=== PATIENT | male | born 1975 ===

== ENCOUNTER 2018-09-02 02:53 | Inpatient (IN) | payer MEDICAID, OTHER ==
[2018-09-02] MEDS ORDERED: Morphine 4 mg/ml ISec IVP STA (03:05)
[2018-09-02] MEDS ORDERED: Sodium Chloride 0.9% 1,000 ML IV STA (03:05)
--- NOTE | 2018-09-02 03:15 | ED PDOC ---
Arrival/HPI - General Chief Complaint: Abdominal Pain Time Seen by Provider: 09/02/18 02:57 Historian: Patient - History of Present Illness Narrative History of Present Illness (Text): 09/02/18 03:12 43 year old male, with no significant past medical history, presents to the emergency department with abdominal pain, for 1 day. Patient informs pain coming from epigastric abdominal region. Patient also informs of episodes of v omiting associated with pain. Patient denies any diarrhea, fevers, chills, headache, dizziness, chest pain, shortness of breath, cough, back pain, neck pain, urinary/bowel changes, or any other complaint. Time/Duration: 24 hours Symptom Onset: Gradual Symptom Course: Unchanged Past Medical History - Provider Review Nursing Documentation Reviewed: Yes - Gastrointestinal Hx Liver Failure: Yes (Liver cirrhosis) - Psychiatric Hx Substance Use: No - Surgical History Hx Appendectomy: Yes - Anesthesia Hx Anesthesia: Yes Family/Social History - Physician Review Nursing Documentation Reviewed: Yes Family/Social History: No Known Family HX Smoking Status: Unknown If Ever Smoked Hx Alcohol Use: No Hx Substance Use: No Allergies/Home Meds Allergies/Adverse Reactions: Allergies No Known Allergies Allergy (Verified 09/02/18 02:59) Review of Systems - Physician Review All systems were reviewed & negative as marked: Yes - Review of Systems Constitutional: absent: Fevers, Night Sweats Respiratory: absent: SOB, Cough Cardiovascular: absent: Chest Pain Gastrointestinal: Abdominal Pain, Vomiting. absent: Diarrhea Musculoskeletal: absent: Back Pain, Neck Pain Neurological: absent: Headache, Dizziness Physical Exam Vital Signs Reviewed: Yes Vital Signs Temp Pulse Resp BP Pulse Ox 09/02/18 03:02 98.3 F 88 18 128/73 97 Temperature: Afebrile Blood Pressure: Normal Pulse: Regular Respiratory Rate: Normal Appearance: Positive for: Well-Appearing, Non-Toxic, Comfortable Pain Distress: None Mental Status: Positive for: Alert and Oriented X 3 - Systems Exam Head: Present: Atraumatic, Normocephalic Pupils: Present: PERRL Extroacular Muscles: Present: EOMI Conjunctiva: Present: Normal Mouth: Present: Moist Mucous Membranes Neck: Present: Normal Range of Motion Respiratory/Chest: Present: Clear to Auscultation, Good Air Exchange. No: Respiratory Distress, Accessory Muscle Use Cardiovascular: Present: Regular Rate and Rhythm, Normal S1, S2. No: Murmurs Abdomen: Present: Tenderness Back: Present: Normal Inspection Upper Extremity: Present: Normal Inspection. No: Cyanosis, Edema Lower Extremity: Present: Normal Inspection. No: Edema Neurological: Present: Speech Normal Skin: Present: Warm, Dry, Normal Color. No: Rashes Psychiatric: Present: Alert, Oriented x 3, Normal Insight, Normal Concentration Medical Decision Making ED Course and Treatment: 09/02/18 03:16 Impression: 43 year old male presents with epigastric pain. Plan: -- EKG -- Labs -- Morphine -- Pepcid -- Zofran -- Urinalysis -- Reassess and disposition Progress Notes: 09/02/18 05:53 CT SCAN OF THE ABDOMEN AND PELVIS WITH CONTRAST. CLINICAL HISTORY: Abdominal pain. TECHNIQUE: Multiple axial and coronal CT images were obtained through the abdomen and pelvis after administration of intravenous contrast material. COMMENTS: Distended stomach. Distended proximal small bowel. Transition zone and right lower quadrant. The liver is irregular without mass or defect. There is no intra or extrahepatic biliary ductal dilatation. The spleen is normal. The gallbladder is distended with mild diffuse thickening and enhancement of its wall. Nonobstructing gallstones are noted The pancreas is of normal contour and attenuation characteristics. There is no evidence of adrenal mass. Right renal nonobstructing stones the largest measuring 5 mm. Bilateral simple renal cysts are noted. Both kidneys demonstrate prompt and equal nephrograms. The kidneys are normal in size, shape and configuration. There is no evidence of renal or ureteral mass. No ureteral calculi are identified. There is no hydroureter or hydronephrosis. Changes of portal hypertension with prominent perisplenic varices. Prior appendectomy There is no evidence of abdominal ascites or lymphadenopathy. Prior appendectomy. There is no evidence of intrinsic or extrinsic bladder mass. There is no pelvic ascites or lymphadenopathy. Images of the lung bases show no evidence of pleural or parenchymal mass. There are no pleural effusions. The bony structures are free of lytic or blastic lesions. IMPRESSION: Parenchymal liver disease. Chronic. Portal hypertension. Cholelithiasis. Diffuse thickening and enhancement of the wall of the gallbladder, probably reactive to chronic parenchymal liver disease and portal hypertension. C orrelation with focal tenderness in the right upper quadrant and/or sonographic evaluation would be helpful to exclude acute inflammatory pathology of the gallbladder. Partial small bowel obstruction. A transition zone in the right lower quadrant. No bowel perforation or pneumatosis intestinalis. No mass lesion is noted. Nonobstructing right nephrolithiasis. - EKG Interpretation EKG Interpretation (Text): 09/02/18 03:51 nsr rate 89 nssts changes - Medication Orders Current Medication Orders: Famotidine (Pepcid) 20 mg IVP STAT STA Stop: 09/02/18 03:06 Sodium Chloride (Sodium Chloride 0.9%) 1,000 mls @ 100 mls/hr IV .Q10H STA Stop: 09/02/18 13:04 Morphine Sulfate (Morphine) 4 mg IVP STAT STA Stop: 09/02/18 03:06 Ondansetron HCl (Zofran Inj) 4 mg IVP STAT STA Stop: 09/02/18 03:06 - Scribe Statement The provider has reviewed the documentation as recorded by the Scribe Canelo Navarro Provider Scribe Attestation: All medical record entries made by the Scribe were at my direction and personally dictated by me. I have reviewed the chart and agree that the record accurately reflects my personal performance of the history, physical exam, medical decision making, and the department course for this patient. I have also personally directed, reviewed, and agree with the discharge instructions and disposition. Disposition/Present on Arrival - Present on Arrival Any Indicators Present on Arrival: No History of DVT/PE: No History of Uncontrolled Diabetes: No Urinary Catheter: No History of Decub. Ulcer: No History Surgical Site Infection Following: None - Disposition Have Diagnosis and Disposition been Completed?: Yes Diagnosis: Bowel obstruction Disposition: HOSPITALIZED Disposition Time: 07:00 Condition: GOOD
[2018-09-02 03:46] LABS: INR 1.62; PARTIAL THROMBOPLASTIN TIME 40.3 Seconds (25.1-36.5); PROTHROMBIN TIME 18.7 SECONDS (9.4-12.5)
[2018-09-02 03:58] LABS: BASO # 0.01 K/mm3 (0.0-2.0); BASO % 0.3 % (0.0-3.0); EOS # 0.2 (0.0-0.7); EOS % 6.1 % (1.5-5.0); GRAN # 1.67 (1.4-6.5); HEMOGLOBIN 11.4 g/dL (14.0-18.0); LYMPH % 31.9 % (22.0-35.0); MEAN CELL VOLUME 95.1 fl (80.0-105.0); MEAN CORPUSCULAR HEMOGLOBIN 32.6 pg (25.0-35.0); MEAN CORPUSCULAR HGB CONC 34.2 g/dl (31.0-37.0); MEAN PLATELET VOLUME 11.8 fl (7.0-11.0); MONO # 0.2 (0.1-0.6); MONO % 7.7 % (1.0-6.0); RBC 3.5 10^6/uL (3.5-6.1); RED CELL DISTRIBUTION WIDTH 15.6 % (11.5-14.5); WHITE BLOOD COUNT 3.1 10^3/ul (4.5-11.0)
[2018-09-02 04:03] LABS: ALB/GLOB RATIO 0.8 (1.1-1.8); ALBUMIN 2.8 g/dL (3.0-4.8); ALT/SGPT 31 U/L (7-56); AMYLASE 96 U/L (35-125); AST/SGOT 43 U/L (17-59); BLOOD UREA NITROGEN 9 mg/dL (7-21); CALCIUM 8.5 mg/dL (8.4-10.5); GFR NON-AFRICAN AMERICAN > 60; LIPASE 146 U/L (23-300)
[2018-09-02 04:14] LABS: TROPONIN I < 0.01 ng/mL
[2018-09-02] MEDS ORDERED: Iohexol 350 MG/100 ML VIAL ONE (04:23)
--- NOTE | 2018-09-02 08:18 | CARD ---
APPROVED REPORT Date of service: 09/02/2018 EKG Measurement Heart [id number] <Conclusion> Normal sinus rhythm NSSTW changes Prolonged QT
[2018-09-02 09:00] LABS: URINE BILIRUBIN NEGATIVE (NEGATIVE); URINE BLOOD SMALL (NEGATIVE); URINE GLUCOSE (UA) NEGATIVE (NEGATIVE); URINE LEUKOCYTE ESTERASE NEGATIVE Leu/uL (NEGATIVE); URINE PROTEIN NEGATIVE mg/dL (<30 mg/dL)
--- NOTE | 2018-09-02 09:05 | CP.PCM.CON ---
History of Present Illness - History of Present Illness History of Present Illness: Deric Abdul, PGY-1, Surgery Consult Note for Dr. Barragan 43 year old male with past medical history of cirrhosis presents with burning, constant right sided abdominal pain for 1 day. Patient reports eating green vegetables when the pain started 1 day ago and had 8 episodes of nonbilious, nonbloody vomitus since the pain started. He reports the pain radiates to the lower back. Patient has had chronic yellow diarrhea since he was diagnosed with cirrhosis 5 years ago. Patient has 4-6 bowel movements a day and has been passing gas even today. Patient has had a similar episode 3 months ago when he ate green vegetables and was told not to eat green vegetables and given a modified diet. He cannot remember what the diagnosis was but reported that it was related to his cirrhosis. Patient has had endoscopy and colonoscopy 1 year a go which was unremarkable. Upon arrival to emergency department, CT scan shows abdominal pain secondary to cholecystitis vs. small bowel obstruction. Patient denies any other symptoms such as headache, dizziness, chest pain, heart palpitations, shortness of breath, dysuria, and hematuria. 12-point ROS was negative except for what was mentioned above. PMH: cirrhosis PSH: appendectomy FMHx: denies SHx: reported drinking but stopped 5 years ago. He used to drink 8-10 drinks daily. He denies smoking and recreational drug history use. Allergies: NKDA Medications: lactulose PMD: none Casket Liner: none Review of Systems - Constitutional Constitutional: absent: Chills, Fever - EENT Eyes: absent: Blurred Vision Ears: absent: Decreased Hearing Nose/Mouth/Throat: absent: Dysphagia - Cardiovascular Cardiovascular: absent: Chest Pain, Dyspnea, Dyspnea on Exertion - Respiratory Respiratory: absent: Cough, Dyspnea, Dyspnea on Exertion - Gastrointestinal Gastrointestinal: Abdominal Pain (right sided), Diarrhea (yellow), Nausea, Vomiting. absent: Constipation - Genitourinary Genitourinary: absent: Dysuria, Hematuria - Musculoskeletal Musculoskeletal: absent: Arthralgias, Muscle Weakness, Stiffness - Neurological Neurological: absent: Confusion, Numbness, Headaches, Tingling, Vertigo Past Patient History - Past Social History Smoking Status: Unknown If Ever Smoked - GASTROINTESTINAL Hx Liver Failure: Yes (Liver cirrhosis) - PSYCHIATRIC Hx Substance Use: No - SURGICAL HISTORY Hx Appendectomy: Yes - ANESTHESIA Hx Anesthesia: Yes Meds Allergies/Adverse Reactions: Allergies Allergy/AdvReac Type Severity Reaction Status Date / Time No Known Allergies Allergy Verified 09/02/18 02:59 - Medications Medications: Current Medications Sodium Chloride (Sodium Chloride 0.9%) 1,000 mls @ 100 mls/hr IV .Q10H STA Stop: 09/02/18 13:04 Last Admin: 09/02/18 03:31 Dose: 100 mls/hr Physical Exam - Constitutional Appears: Well, Non-toxic - Head Exam Head Exam: ATRAUMATIC, NORMAL INSPECTION, NORMOCEPHALIC - Eye Exam Eye Exam: EOMI Pupil Exam: PERRL - ENT Exam ENT Exam: Mucous Membranes Moist - Respiratory Exam Respiratory Exam: Clear to Auscultation Bilateral, NORMAL BREATHING PATTERN - Cardiovascular Exam Cardiovascular Exam: REGULAR RHYTHM - GI/Abdominal Exam GI & Abdominal Exam: Distended (mild), Normal Bowel Sounds, Soft, Tenderness Additional comments: negative Copeland's sign - Extremities Exam Extremities exam: Positive for: full ROM, normal inspection - Neurological Exam Neurological exam: Alert, CN II-XII Intact, Normal Gait, Oriented x3 Results - Vital Signs Recent Vital Signs: Last Vital Signs Temp 98.0 F 09/02/18 08:38 Pulse 79 09/02/18 08:38 Resp 18 09/02/18 08:38 BP 119/73 09/02/18 08:18 Pulse Ox 98 09/02/18 08:38 - Labs Result Diagrams: 09/02/18 03:27 09/02/18 03:27 Labs: Laboratory Results - last 24 hr 09/02/18 09/02/18 09/02/18 03:27 03:27 03:27 WBC 3.1 L RBC 3.50 Hgb 11.4 L Hct 33.3 L MCV 95.1 MCH 32.6 MCHC 34.2 RDW 15.6 H Plt Count 59 L MPV 11.8 H Gran % 54.0 Lymph % (Auto) 31.9 [place] % (Auto) 7.7 H Eos % (Auto) 6.1 H Baso % (Auto) 0.3 Gran # 1.67 Lymph # (Auto) 1.0 L [place] # (Auto) 0.2 Eos # (Auto) 0.2 Baso # (Auto) 0.01 PT 18.7 H INR 1.62 APTT 40.3 H Sodium 141 Potassium 3.7 Chloride 110 H Carbon Dioxide 25 Anion Gap 9 L BUN 9 Creatinine 0.5 L Est GFR ( Amer) > 60 Est GFR (Non-Af Amer) > 60 Random Glucose 116 H Calcium 8.5 Total Bilirubin 4.0 H AST 43 ALT 31 Alkaline Phosphatase 229 H Lactate Dehydrogenase 484 Total Creatine Kinase 119 Troponin I < 0.01 Total Protein 6.3 Albumin 2.8 L Globulin 3.5 Albumin/Globulin Ratio 0.8 L Amylase 96 Lipase 146 Assessment & Plan - Assessment and Plan (Free Text) Assessment: 43 year old male with past medical history of cirrhosis presents with right sided abdominal pain radiating to the back with 8 episodes of vomiting for [address] scan showed diffuse thickening and enhancement of gallbladder wall secondary to parenchmyal liver disease, portal hypoertension, and partial SBO in right lower quadrant. Plan: -Patient is clinically not obstructed. -Abnormal lab findings likely due to alcoholic cirrhosis. -MELD score is 17. Child HOOPER score is B. -Follow up right upper quadrant ultrasound and GI consult. Will discuss case with Dr. Barragan. - Date & Time Date: 09/02/18 Time: 09:09
[2018-09-02 09:10] LABS: URINE APPEARANCE CLEAR (CLEAR); URINE COLOR YELLOW (YELLOW)
[2018-09-02 09:45] LABS: URINE BACTERIA SMALL (NEG); URINE CALCIUM OXALATE CRYSTALS TRACE /hpf; URINE RBC 0 - 2 /hpf (0-2); URINE WBC 0 - 2 /hpf (0-6)
--- NOTE | 2018-09-02 10:09 | CT ---
Date of service: 09/02/2018 PROCEDURE: CT Abdomen and Pelvis with and without intravenous contrast HISTORY: abd pain COMPARISON: None. TECHNIQUE: Axial images of the abdomen were obtained in the pre contrast, portal venous and delayed phases of enhancement. Coronal and sagittal reformats were generated. Contrast dose: Radiation dose: Total exam DLP = 987.36 mGy-cm. This CT exam was performed using one or more of the following dose reduction techniques: Automated exposure control, adjustment of the mA and/or kV according to patient size, and/or use of iterative reconstruction technique. FINDINGS: LOWER THORAX: Unremarkable. LIVER: Cirrhosis with upper abdominal varices consistent with portal hypertension. GALLBLADDER AND BILE DUCTS: Gallstones. PANCREAS: Unremarkable. No gross lesion or ductal dilatation. SPLEEN: Splenomegaly consistent with portal hypertension. ADRENALS: Unremarkable. No mass. KIDNEYS AND URETERS: Bilateral renal cysts and bilateral renal calculi, nonobstructive. No gross mass. VASCULATURE: Unremarkable. No aortic aneurysm. No aortic atherosclerotic calcification or mural plaque present. BOWEL: Distended loops of small bowel probable partial small bowel obstruction versus ileus. Appendectomy. APPENDIX: Normal appendix. PERITONEUM: Unremarkable. No free fluid. No free air. LYMPH NODES: Unremarkable. No enlarged lymph nodes. BLADDER: Unremarkable. REPRODUCTIVE: Unremarkable. BONES: No acute fracture. OTHER FINDINGS: None. IMPRESSION: Cirrhosis with upper abdominal varices consistent with portal hypertension. Splenomegaly. Bilateral renal cysts and nephrolithiasis. Distended loops of small bowel probable partial small bowel obstruction versus ileus. Appendectomy.
[2018-09-02 10:49] VITALS: BMI 33.3
--- NOTE | 2018-09-02 11:38 | US ---
Date of service: 09/02/2018 HISTORY: epigastric pain, elevated bili, liver cirrhosis COMPARISON: None. TECHNIQUE: Sonographic evaluation of the abdomen. FINDINGS: LIVER: Measures 15.0 cm. Diffusely increased echogenicity of the liver parenchyma. Consistent with fatty infiltration. 10 mm simple cyst in right lobe of liver. No other mass. No biliary ductal dilatation. Smooth contour. Note is made of reversal of normal direction of flow in the main portal vein. Hepatofugal portal venous flow noted. GALLBLADDER: Cholelithiasis. Mural thickening up to 5 mm. No pericholecystic fluid. Negative sonographic Copeland sign. Findings equivocal for cholecystitis. COMMON BILE DUCT: Measures 4 mm. No stones. No dilatation. PANCREAS: Unremarkable as visualized. No mass. No ductal dilatation. RIGHT KIDNEY: Measures 12.5cm. Normal cortical thickness and echogenicity. Parapelvic renal cyst, 2.7 cm diameter. No other mass. No calculus or hydronephrosis. LEFT KIDNEY: Measures 12.7cm. Normal cortical thickness and echogenicity. Mid renal simple cortical cyst, 1.9 x 2.0 x 2.5 cm. No calculus or hydronephrosis. SPLEEN: Splenomegaly. The spleen measures 16.8 cm. Dilated venous channels in the region of the splenic hilum, possibly varices. AORTA: No aneurysmal dilatation. IVC: Unremarkable. OTHER FINDINGS: None. IMPRESSION: Cholelithiasis with gallbladder wall thickening but no other signs of cholecystitis. Equivocal findings. Fatty infiltration of the liver. Portal hypertension as demonstrated by a reversal of the normal direction of flow in the main portal vein. Possible retroperitoneal varices adjacent to splenic hilar region. Right parapelvic renal cyst and left renal cortical cyst. Splenomegaly
[2018-09-02] MEDS ORDERED: Morphine 2 mg/ml ISec IVP PRN (13:09)
--- NOTE | 2018-09-02 13:17 | CP.PCM.HP ---
<Anamika Moreno - Last Filed: 09/02/18 15:55> History of Present Illness - History of Present Illness History of Present Illness: CC: Abdominal pain, Nausea and vomiting HPI: 43 yr old Male PMH of cirrhosis presents with Abdominal pain which began as epigastric and migrated to his RLQ associated with nausea and vomiting x 8 for 1 day. Patient indicates that he has also had diarrhea overnight with one normal BM this AM. He states that the pain is constant in nature and began as a burning but is now more dull. He had an endoscopy and colonoscopy 1 yr ago which he states were normal. He was previously a heavy drinker until 5 years ago when he was diagnosed with liver cirrhosis and has quit drinking ETOH since. He denies any current BARON, CP, SOB, dizziness, confusion, vision changes or tremors. PMH: Liver Cirrhosis with associated varices and portal HTN PSH: Appendectomy All: KNDA Social: former alcoholic, denies smoking and illicit drugs PMD: unknown Medications: Lactulose Present on Admission - Present on Admission Any Indicators Present on Admission: No Review of Systems - Review of Systems All systems: reviewed and no additional remarkable complaints except (as per HPI) Past Patient History - Past Social History Smoking Status: Unknown If Ever Smoked - GASTROINTESTINAL Hx Liver Failure: Yes (Liver cirrhosis) - PSYCHIATRIC Hx Substance Use: No - SURGICAL HISTORY Hx Appendectomy: Yes - ANESTHESIA Hx Anesthesia: Yes Meds Allergies/Adverse Reactions: Allergies Allergy/AdvReac Type Severity Reaction Status Date / Time No Known Allergies Allergy Verified 09/02/18 02:59 Physical Exam - Constitutional Appears: Well, Non-toxic, No Acute Distress - Head Exam Head Exam: ATRAUMATIC, NORMOCEPHALIC - Eye Exam Eye Exam: EOMI, Scleral icterus (mild) Pupil Exam: PERRL - ENT Exam ENT Exam: Mucous Membranes Moist Additional comments: no sublingual jaundice - Respiratory Exam Respiratory Exam: NORMAL BREATHING PATTERN - Cardiovascular Exam Cardiovascular Exam: REGULAR RHYTHM - GI/Abdominal Exam GI & Abdominal Exam: Distended, Guarding (RLQ), Soft, Tenderness (RLQ and epigastric area). absent: Rebound, Rigid - Extremities Exam Extremities exam: Positive for: normal capillary refill, pedal pulses present. Negative for: calf tenderness, pedal edema - Back Exam Back exam: NORMAL INSPECTION. absent: CVA tenderness (L), CVA tenderness (R) - Neurological Exam Neurological exam: Alert, CN II-XII Intact, Oriented x3 - Psychiatric Exam Psychiatric exam: Normal Affect, Normal Mood - Skin Skin Exam: Dry, Normal Color, Warm Results - Vital Signs Recent Vital Signs: Last Vital Signs Temp 98.0 F 09/02/18 08:38 Pulse 79 09/02/18 08:38 Resp 18 09/02/18 08:38 BP 119/73 09/02/18 08:18 Pulse Ox 98 09/02/18 08:38 - Labs Result Diagrams: 09/02/18 03:27 09/02/18 03:27 Labs: Laboratory Results - last 24 hr 09/02/18 09/02/18 09/02/18 03:27 03:27 03:27 WBC 3.1 L RBC 3.50 Hgb 11.4 L Hct 33.3 L MCV 95.1 MCH 32.6 MCHC 34.2 RDW 15.6 H Plt Count 59 L MPV 11.8 H Gran % 54.0 Lymph % (Auto) 31.9 [place] % (Auto) 7.7 H Eos % (Auto) 6.1 H Baso % (Auto) 0.3 Gran # 1.67 Lymph # (Auto) 1.0 L [place] # (Auto) 0.2 Eos # (Auto) 0.2 Baso # (Auto) 0.01 PT 18.7 H INR 1.62 APTT 40.3 H Sodium 141 Potassium 3.7 Chloride 110 H Carbon Dioxide 25 Anion Gap 9 L BUN 9 Creatinine 0.5 L Est GFR ( Amer) > 60 Est GFR (Non-Af Amer) > 60 Random Glucose 116 H Calcium 8.5 Total Bilirubin 4.0 H AST 43 ALT 31 Alkaline Phosphatase 229 H Ammonia Lactate Dehydrogenase 484 Total Creatine Kinase 119 Troponin I < 0.01 Total Protein 6.3 Albumin 2.8 L Globulin 3.5 Albumin/Globulin Ratio 0.8 L Amylase 96 Lipase 146 Urine Color Urine Appearance Urine pH Ur Specific [place] Urine Protein Urine Glucose (UA) Urine Ketones Urine Blood Urine Nitrate Urine Bilirubin Urine Urobilinogen Ur Leukocyte Esterase Urine RBC Urine WBC Calcium Oxalate Crystal Urine Bacteria 09/02/18 09/02/18 08:50 10:30 WBC RBC Hgb Hct MCV MCH MCHC RDW Plt Count MPV Gran % Lymph % (Auto) [place] % (Auto) Eos % (Auto) Baso % (Auto) Gran # Lymph # (Auto) [place] # (Auto) Eos # (Auto) Baso # (Auto) PT INR APTT Sodium Potassium Chloride Carbon Dioxide Anion Gap BUN Creatinine Est GFR ( Amer) Est GFR (Non-Af Amer) Random Glucose Calcium Total Bilirubin AST ALT Alkaline Phosphatase Ammonia 48 H Lactate Dehydrogenase Total Creatine Kinase Troponin I Total Protein Albumin Globulin Albumin/Globulin Ratio Amylase Lipase Urine Color Yellow Urine Appearance Clear Urine pH 7.0 Ur Specific [place] 1.010 Urine Protein Negative Urine Glucose (UA) Negative Urine Ketones Negative Urine Blood Small H Urine Nitrate Negative Urine Bilirubin Negative Urine Urobilinogen 1.0 H Ur Leukocyte Esterase Negative Urine RBC 0 - 2 Urine WBC 0 - 2 Calcium Oxalate Crystal Trace Urine Bacteria Small Assessment & Plan - Assessment and Plan (Free Text) Assessment: 43 yr old male with PMH Liver Cirrhosis presenting with SBO vs Ileus Plan: SBO vs Ileus on CT scan: * Patient having BM and passing flatus, likely early partial if obstructed * CLD, ADAT * IVF * Zofran * Pain control * Surgery consulted, recs appreciated * GI consulted recs appreciated * communication placed for patient to walk floors Q2H History of Cirrhosis/ Portal hypertension/ Varices: * MELD 17, João [place] Class B * will contact [facility] for possible transplant candidacy * Ammonia level ordered * will restart home lactulose * will begin propanolol for variceal bleed prophylaxis Rash: * likely tinea corporis * clotrimazole cream BID to affected area Prophylaxis: SCDs, Protonix Social: Patient follows at [facility] for his liver cirrhosis care, he indicates that he had a normal colonoscopy and endoscopy there one year ago, will obtain records and follow up Patient seen and discussed with Dr. Christy Moreno, PGY 1 - Date & Time Date: 09/02/18 Time: 07:35 <Yefri Harrison - Last Filed: 09/03/18 17:55> Results - Vital Signs Recent Vital Signs: Last Vital Signs Temp 97.9 F 09/03/18 17:09 Pulse 70 09/03/18 17:09 Resp 20 09/03/18 17:09 BP 100/64 09/03/18 17:09 Pulse Ox 100 09/03/18 17:09 - Labs Result Diagrams: 09/03/18 05:30 09/03/18 05:30 Labs: Laboratory Results - last 24 hr 09/03/18 09/03/18 09/03/18 05:30 05:30 07:16 WBC 2.9 L* RBC 3.51 Hgb 11.5 L Hct 33.6 L MCV 95.7 MCH 32.8 MCHC 34.2 RDW 15.3 H Plt Count 54 L MPV 11.9 H Gran % 51.6 Lymph % (Auto) 33.8 [place] % (Auto) 7.0 H Eos % (Auto) 7.3 H Baso % (Auto) 0.3 Gran # 1.48 Lymph # (Auto) 1.0 L [place] # (Auto) 0.2 Eos # (Auto) 0.2 Baso # (Auto) 0.01 Sodium 139 Potassium 4.0 Chloride 111 H Carbon Dioxide 25 Anion Gap 8 L BUN 6 L Creatinine 0.6 L Est GFR ( Amer) > 60 Est GFR (Non-Af Amer) > 60 POC Glucose (mg/dL) 86 Random Glucose 82 Calcium 8.2 L Phosphorus 3.9 Magnesium 1.4 L Total Bilirubin 7.5 H AST 40 ALT 29 Alkaline Phosphatase 130 H D Total Protein 5.7 L Albumin 2.6 L Globulin 3.1 Albumin/Globulin Ratio 0.9 L Attending/Attestation - Attestation I have personally seen and examined this patient.: Yes I have fully participated in the care of the patient.: Yes I have reviewed all pertinent clinical information: Yes Notes (Text): 43 yr old male with PMH Liver Cirrhosis presenting with SBO / Ileus Plan: SBO / Ileus on CT scan History of Cirrhosis/ Portal hypertension/ Varices: Rash: * likely tinea corporis
[2018-09-02] MEDS ORDERED: Pneumococcal 23-Valent Vaccine IM ONE (13:50)
[2018-09-02] MEDS ORDERED: Influenza Vaccine 60 mcg/0.5 mL SYR (4YR UP) IM ONE (13:50)
[2018-09-02 17:02] VITALS: RESP 20
[2018-09-02] MEDS: Clotrimazole 1% Cream(30 gm) TOP SCH (17:25)
[2018-09-02] MEDS: Sodium Chloride 0.9% 1,000 ML IV SCH (17:31)
[2018-09-03] MEDS: Sodium Chloride 0.9% 1,000 ML IV SCH ×2 (02:32→11:25)
[2018-09-03 06:37] LABS: BASO # 0.01 K/mm3 (0.0-2.0); BASO % 0.3 % (0.0-3.0); EOS # 0.2 (0.0-0.7); EOS % 7.3 % (1.5-5.0); GRAN # 1.48 (1.4-6.5); GRAN % 51.6 % (50.0-68.0); HEMOGLOBIN 11.5 g/dL (14.0-18.0); LYMPH % 33.8 % (22.0-35.0); MEAN CELL VOLUME 95.7 fl (80.0-105.0); MEAN CORPUSCULAR HEMOGLOBIN 32.8 pg (25.0-35.0); MEAN CORPUSCULAR HGB CONC 34.2 g/dl (31.0-37.0); MEAN PLATELET VOLUME 11.9 fl (7.0-11.0); MONO # 0.2 (0.1-0.6); RBC 3.51 10^6/uL (3.5-6.1); RED CELL DISTRIBUTION WIDTH 15.3 % (11.5-14.5)
[2018-09-03 06:44] LABS: ALB/GLOB RATIO 0.9 (1.1-1.8); ALBUMIN 2.6 g/dL (3.0-4.8); ALT/SGPT 29 U/L (7-56); AST/SGOT 40 U/L (17-59); BLOOD UREA NITROGEN 6 mg/dL (7-21); CALCIUM 8.2 mg/dL (8.4-10.5); GFR NON-AFRICAN AMERICAN > 60
[2018-09-03 06:57] LABS: WHITE BLOOD COUNT 2.9 10^3/ul (4.5-11.0)
--- NOTE | 2018-09-03 07:43 | CP.PCM.PN ---
Subjective - Date & Time of Evaluation Date of Evaluation: 09/03/18 Time of Evaluation: 07:40 - Subjective Subjective: Deric Abdul, PGY-1, Surgery Progress Note for Dr. Barragan Patient seen and examined at bedside. Patient reports no overnight events. Patient reports having normal bowel movements, but denies nausea, vomiting, abdominal pain today. He reports mild chills. 12-point ROS is unremarkable except for what is above. Objective - Vital Signs/Intake and Output Vital Signs (last 24 hours): Temp Pulse Resp BP Pulse Ox 98.2 F 78 20 123/84 99 09/02/18 17:02 09/02/18 17:26 09/02/18 17:02 09/02/18 17:26 09/02/18 17:02 - Medications Medications: Current Medications Clotrimazole (Lotrimin 1%) 1 gm TOP BID [facility] Last Admin: 09/02/18 17:25 Dose: 1 gm Sodium Chloride (Sodium Chloride 0.9%) 1,000 mls @ 130 mls/hr IV .Q7H42M [facility] Last Admin: 09/03/18 02:32 Dose: 130 mls/hr Lactulose (Enulose) 20 gm PO HS [facility] Last Admin: 09/02/18 22:16 Dose: 20 gm Ondansetron HCl (Zofran Inj) 4 mg IVP Q4H PRN PRN Reason: Nausea/Vomiting Pantoprazole Sodium (Protonix Inj) 40 mg IVP DAILY [facility] Last Admin: 09/02/18 10:37 Dose: 40 mg Propranolol HCl (Inderal) 10 mg PO TID [facility] Last Admin: 09/02/18 17:26 Dose: 10 mg - Labs Labs: 09/03/18 05:30 09/03/18 05:30 PT 18.7 SECONDS (9.4-12.5) H 09/02/18 03:27 INR 1.62 09/02/18 03:27 APTT 40.3 Seconds (25.1-36.5) H 09/02/18 03:27 - Constitutional Appears: Well, Non-toxic, No Acute Distress - Head Exam Head Exam: ATRAUMATIC, NORMAL INSPECTION, NORMOCEPHALIC - Eye Exam Eye Exam: EOMI Pupil Exam: PERRL - ENT Exam ENT Exam: Mucous Membranes Moist - Respiratory Exam Respiratory Exam: Clear to Ausculation Bilateral, NORMAL BREATHING PATTERN - Cardiovascular Exam Cardiovascular Exam: REGULAR RHYTHM, RRR - GI/Abdominal Exam GI & Abdominal Exam: Distended (mild), Soft, Normal Bowel Sounds. absent: Tenderness - Extremities Exam Extremities Exam: Full ROM - Neurological Exam Neurological Exam: Alert, Awake, CN II-XII Intact, Normal Gait, Oriented x3 - Skin Skin Exam: Dry, Intact, Normal Color Assessment and Plan - Assessment and Plan (Free Text) Assessment: 43 year old male with past medical history of cirrhosis presents with right sided abdominal pain present for 1 day after he ate green vegetables. Plan: -Advance diet as tolerated. -Patient has improved abdominal tenderness and is having bowel movements. -DVT and GI prophylaxis. -Replete electrolytes as needed. -If patient needs further surgical management, please call the surgery service. Will discuss case with Dr. Barragan
[2018-09-03] MEDS ORDERED: Magnesium Sulfate 2 gm/50 ml 2 GM/50 ML BAG IVPB ONE (09:09)
[2018-09-03] MEDS ORDERED: Lactulose 10 gm/15 ml (Rectal Use) PR SCH (10:00)
[2018-09-03] MEDS: Clotrimazole 1% Cream(30 gm) TOP SCH (10:28)
--- NOTE | 2018-09-03 10:45 | RAD ---
Date of service: 09/03/2018 HISTORY: SBO COMPARISON: CT abdomen and pelvis performed on 09/02/2018 FINDINGS: BOWEL: There are gas filled normal caliber small bowel loops and gas in the colon. No evidence of bowel dilatation or obstruction. No differential air-fluid levels. No free intraperitoneal air. BONES: Normal. OTHER FINDINGS: None. IMPRESSION: Nonspecific nonobstructive bowel gas pattern.
--- NOTE | 2018-09-03 12:48 | CP.PCM.PN ---
Subjective - Date & Time of Evaluation Date of Evaluation: 09/03/18 Time of Evaluation: 07:15 Objective - Vital Signs/Intake and Output Vital Signs (last 24 hours): Temp Pulse Resp BP Pulse Ox 98.2 F 70 20 130/83 99 09/02/18 17:02 09/03/18 11:26 09/02/18 17:02 09/03/18 11:26 09/02/18 17:02 - Medications Medications: Current Medications Clotrimazole (Lotrimin 1%) 1 gm TOP BID [facility] Last Admin: 09/03/18 10:28 Dose: 1 gm Sodium Chloride (Sodium Chloride 0.9%) 1,000 mls @ 130 mls/hr IV .Q7H42M [facility] Last Admin: 09/03/18 11:25 Dose: 130 mls/hr Lactulose (Enulose) 20 gm PO HS [facility] Last Admin: 09/02/18 22:16 Dose: 20 gm Ondansetron HCl (Zofran Inj) 4 mg IVP Q4H PRN PRN Reason: Nausea/Vomiting Pantoprazole Sodium (Protonix Ec Tab) 40 mg PO ACB [facility] Propranolol HCl (Inderal) 10 mg PO TID [facility] Last Admin: 09/03/18 11:26 Dose: 10 mg - Labs Labs: 09/03/18 05:30 09/03/18 05:30 PT 18.7 SECONDS (9.4-12.5) H 09/02/18 03:27 INR 1.62 09/02/18 03:27 APTT 40.3 Seconds (25.1-36.5) H 09/02/18 03:27 - Constitutional Appears: Well, Non-toxic, No Acute Distress - Head Exam Head Exam: ATRAUMATIC, NORMOCEPHALIC - Eye Exam Eye Exam: EOMI, Scleral icterus - ENT Exam ENT Exam: Mucous Membranes Moist - Respiratory Exam Respiratory Exam: NORMAL BREATHING PATTERN - Cardiovascular Exam Cardiovascular Exam: REGULAR RHYTHM - GI/Abdominal Exam GI & Abdominal Exam: Soft. absent: Distended, Firm, Guarding, Rigid, Tenderness, Rebound - Extremities Exam Extremities Exam: Normal Capillary Refill. absent: Calf Tenderness, Pedal Edema, Tenderness - Neurological Exam Neurological Exam: Alert, Awake, Oriented x3 - Psychiatric Exam Psychiatric exam: Normal Affect, Normal Mood - Skin Skin Exam: Dry, Intact, Normal Color, Warm Additional comments: jaundice Assessment and Plan - Assessment and Plan (Free Text) Assessment: 43 yr old male with PMH Cirrhosis (MELD 17) with resolved partial SBO found on CT scan
--- NOTE | 2018-09-03 14:20 | CP.PCM.DIS ---
Provider - Provider Date of Admission: 09/02/18 06:38 Attending physician: Jessica Mead MD Consults: Dr. Terri Barragan, Dr. Landen Palma Time Spent in preparation of Discharge (in minutes): 45 Hospital Course - Lab Results Lab Results: Most Recent Lab Values WBC 2.9 10^3/ul (4.5-11.0) L* 09/03/18 05:30 RBC 3.51 10^6/uL (3.5-6.1) 09/03/18 05:30 Hgb 11.5 g/dL (14.0-18.0) L 09/03/18 05:30 Hct 33.6 % (42.0-52.0) L 09/03/18 05:30 MCV 95.7 fl (80.0-105.0) 09/03/18 05:30 MCH 32.8 pg (25.0-35.0) 09/03/18 05:30 MCHC 34.2 g/dl (31.0-37.0) 09/03/18 05:30 RDW 15.3 % (11.5-14.5) H 09/03/18 05:30 Plt Count 54 10^3/uL (120.0-450.0) L 09/03/18 05:30 MPV 11.9 fl (7.0-11.0) H 09/03/18 05:30 Gran % 51.6 % (50.0-68.0) 09/03/18 05:30 Lymph % (Auto) 33.8 % (22.0-35.0) 09/03/18 05:30 [place] % (Auto) 7.0 % (1.0-6.0) H 09/03/18 05:30 Eos % (Auto) 7.3 % (1.5-5.0) H 09/03/18 05:30 Baso % (Auto) 0.3 % (0.0-3.0) 09/03/18 05:30 Gran # 1.48 (1.4-6.5) 09/03/18 05:30 Lymph # (Auto) 1.0 (1.2-3.4) L 09/03/18 05:30 [place] # (Auto) 0.2 (0.1-0.6) 09/03/18 05:30 Eos # (Auto) 0.2 (0.0-0.7) 09/03/18 05:30 Baso # (Auto) 0.01 K/mm3 (0.0-2.0) 09/03/18 05:30 PT 18.7 SECONDS (9.4-12.5) H 09/02/18 03:27 INR 1.62 09/02/18 03:27 APTT 40.3 Seconds (25.1-36.5) H 09/02/18 03:27 Sodium 139 mmol/L (132-148) 09/03/18 05:30 Potassium 4.0 mmol/L (3.6-5.0) 09/03/18 05:30 Chloride 111 mmol/L (98-107) H 09/03/18 05:30 Carbon Dioxide 25 mmol/L (21-33) 09/03/18 05:30 Anion Gap 8 (10-20) L 09/03/18 05:30 BUN 6 mg/dL (7-21) L 09/03/18 05:30 Creatinine 0.6 mg/dl (0.8-1.5) L 09/03/18 05:30 Est GFR ( Amer) > 60 09/03/18 05:30 Est GFR (Non-Af Amer) > 60 09/03/18 05:30 POC Glucose (mg/dL) 86 mg/dL (65-110) 09/03/18 07:16 Random Glucose 82 mg/dL (70-110) 09/03/18 05:30 Calcium 8.2 mg/dL (8.4-10.5) L 09/03/18 05:30 Phosphorus 3.9 mg/dL (2.5-4.5) 09/03/18 05:30 Magnesium 1.4 mg/dL (1.7-2.2) L 09/03/18 05:30 Total Bilirubin 7.5 mg/dL (0.2-1.3) H 09/03/18 05:30 AST 40 U/L (17-59) 09/03/18 05:30 ALT 29 U/L (7-56) 09/03/18 05:30 Alkaline Phosphatase 130 U/L (38-126) H D 09/03/18 05:30 Ammonia 48 umol/L (9-33) H 09/02/18 10:30 Lactate Dehydrogenase 484 U/L (333-699) 09/02/18 03:27 Total Creatine Kinase 119 U/L (35-230) 09/02/18 03:27 Troponin I < 0.01 ng/mL 09/02/18 03:27 Total Protein 5.7 g/dL (5.8-8.3) L 09/03/18 05:30 Albumin 2.6 g/dL (3.0-4.8) L 09/03/18 05:30 Globulin 3.1 gm/dL 09/03/18 05:30 Albumin/Globulin Ratio 0.9 (1.1-1.8) L 09/03/18 05:30 Amylase 96 U/L (35-125) 09/02/18 03:27 Lipase 146 U/L (23-300) 09/02/18 03:27 Urine Color Yellow (YELLOW) 09/02/18 08:50 Urine Appearance Clear (CLEAR) 09/02/18 08:50 Urine pH 7.0 (4.7-8.0) 09/02/18 08:50 Ur Specific [place] 1.010 (1.005-1.035) 09/02/18 08:50 Urine Protein Negative mg/dL (<30 mg/dL) 09/02/18 08:50 Urine Glucose (UA) Negative mg/dL (NEGATIVE) 09/02/18 08:50 Urine Ketones Negative mg/dL (NEGATIVE) 09/02/18 08:50 Urine Blood Small (NEGATIVE) H 09/02/18 08:50 Urine Nitrate Negative (NEGATIVE) 09/02/18 08:50 Urine Bilirubin Negative (NEGATIVE) 09/02/18 08:50 Urine Urobilinogen 1.0 E.U./dL (<1 E.U./dL) H 09/02/18 08:50 Ur Leukocyte Esterase Negative Jennifer/uL (NEGATIVE) 09/02/18 08:50 Urine RBC 0 - 2 /hpf (0-2) 09/02/18 08:50 Urine WBC 0 - 2 /hpf (0-6) 09/02/18 08:50 Calcium Oxalate Crystal Trace /hpf 09/02/18 08:50 Urine Bacteria Small (NEG) 09/02/18 08:50 - Hospital Course Hospital Course: Upon Admission Patient is a 43 year old male with a PMHx of Liver cirrhosis and EtOH abuse in the past who presented to the ED with epigastric abdominal pain associated with vomiting that started 1 day prior to admission. Patient was found to be afebrile and normotensive in the ED with tenderness to palpation of the abdomen. His ECG showed normal sinus rhythm. A CT was done which showed chronic parenchymal liver disease, portal hypertension, and cholelithiasis. He also had diffuse thickening and enhancement of the wall of the gallbladder, with a partial small bowel obstruction, and non-obstructing right nephrolithaisis. The patient was given Morphine, Pepcid, Zofran, and admitted to med/surg for further workup. Hospital Course During his hospital stay, he had an Abdominal ultrasound done, which showed cholelithiasis with gallbladder wall thickening, no pericholecystic fluid or signs of inflammation, fatty infiltration of the liver, portal hypertension, right parapelvic renal cyst and left renal cortical cyst with splenomegaly. An abdominal x-ray showed nonobstructed normal bowel gas pattern. His MELD score is 17, with a Child Hampton Score B and has been followed by [facility] for his liver failure in the past. The patient was having BMs and had no further nausea throughout his stay. He was started on Propanolol due to his history of varices, continued on his home lactulose, given protonix for prevention of gastric ulcers and received clotrimazole cream for tinea corporis found on his lower legs. Over the course of his stay, his pain improved and eventually resolved. Discharge Patient is stable and medically cleared for discharge to go home. He is advised to follow up at [facility] to continue medial care in correlation with his previous medical records. He is advised to return to the ER if his symptoms reoccur or progressively worsen. - Date & Time of H&P Date of H&P: 09/03/18 Time of H&P: 14:00 Discharge Exam - Head Exam Head Exam: ATRAUMATIC, NORMAL INSPECTION, NORMOCEPHALIC - Eye Exam Eye Exam: EOMI, Scleral icterus - ENT Exam ENT Exam: Mucous Membranes Moist - Respiratory Exam Respiratory Exam: NORMAL BREATHING PATTERN - Cardiovascular Exam Cardiovascular Exam: REGULAR RHYTHM - GI/Abdominal Exam GI & Abdominal Exam: Soft. absent: Distended, Firm, Guarding, Tenderness - Extremities Exam Extremities exam: normal capillary refill, pedal pulses present - Neurological Exam Neurological exam: Alert, Oriented x3 - Psychiatric Exam Psychiatric exam: Normal Affect, Normal Mood - Skin Skin Exam: Dry, Intact, Rash, Warm Additional comments: tinea corporis improving Discharge Plan - Discharge Medications Prescriptions: Clotrimazole 1% Cream [Lotrimin 1% CREAM] 1 applic TOP BID #1 tube Lactulose 20 gm PO DAILY #14 solution Pantoprazole Sodium [Protonix] 40 mg PO DAILY #14 ect Propranolol [Inderal] 10 mg PO STAT 14 Days #28 tab - Follow Up Plan Condition: GOOD Disposition: HOME/ ROUTINE Instructions: Small Bowel Obstruction, Cirrhosis (DC), Liver Transplant Additional Instructions: Upon Discharge you will be sent with the following medications Clotrimazole cream to be applied to the lower leg rash area twice daily for 7 days Lactulose 20mg daily by mouth Propanalol 10 mg three times daily by mouth Protonix 40 mg daily by mouth You will be sent with paperwork indicating the severity of your liver cirrhosis and the need for follow up with [facility] hepatology in [place] to begin the process of getting on the liver transplant list. It is essential that you contact them and set up an appointment for evaluation. [facility] in [place], [place]: [phone]. Please also follow up with your primary care doctor at [facility] within 3-5 days. You will need repeat blood work to monitor your liver numbers. Should you develop symptoms such as but not limited to severe headache, shortness of breath, chest pain, confusion, increased abdominal pain, vomiting or fevers please proceed immediately to the nearest Emergency Department
[2018-09-03 17:09] VITALS: BP 100/64; PULSE 70; TEMP 97.9; O2SAT 100
--- NOTE | 2018-09-03 20:08 | CON ---
DATE: 09/03/2018 REASON FOR CONSULT: I have been asked to see this 43-year-old male with a history of alcohol-induced cirrhosis of the liver who comes to the hospital with diffuse abdominal pain, nausea, and vomiting for 1 day. The patient states that the pain was continuous. He apparently had an endoscopy and colonoscopy 1 year ago which were unremarkable. The patient was diagnosed with cirrhosis of the liver 5 years ago. He quit alcohol consumption then. CT scan of the abdomen and pelvis performed in the hospital revealed dilated fluid-filled loops of small bowel. This morning, the patient states that he feels better without any further abdominal pain, nausea, vomiting. He had a bowel movement last night. PAST MEDICAL HISTORY: Notable for alcohol-induced cirrhosis of the liver, portal hypertension. PAST SURGICAL HISTORY: Notable for appendectomy. SOCIAL HISTORY He is a former alcoholic. He denies cigarette smoking. PHYSICAL EXAMINATION: GENERAL: Middle-aged male lying in bed, in no acute distress. VITAL SIGNS: Reveal temperature of 98.2, blood pressure 123/84, heart rate 78. HEENT: Reveal sclerae to be white. Conjunctivae pink. NECK: Supple. CHEST: Lungs are clear. HEART: Reveals regular rate and rhythm. ABDOMEN: Soft, nontender, obese. EXTREMITIES: Show no edema. LABORATORY DATA: Reveal white blood cell count 2.9, hemoglobin 11.5, platelet count of 54,000. Chemistries reveal AST 40, ALT 29, alkaline phosphatase of 130, total bilirubin of 7.5. Albumin of 2.6. PT is 18.7. INR is 1.62. IMPRESSION: A 43-year-old male with several days of abdominal pain, nausea, vomiting, history of alcohol-induced cirrhosis of the liver with CT scan of the abdomen showing dilated fluid-filled loops of small bowel. There is no prior history of abdominal surgery. The patient has either a partial small-bowel obstruction or an ileus. The patient's symptoms appear to have improved this morning. RECOMMENDATIONS: 1. We will check obstructive series of the abdomen. 2. The patient is to be started on clear liquid diet. If tolerated, he can be advanced to a soft, low residue diet. Landen Palma MD [facility] # [id number]
[2018-09-04] MEDS ORDERED: Pantoprazole 40 mg EC Tab PO SCH (07:30)
== END 2018-09-03 17:16 | disposition home or self-care (01) | DRG 389 ==
LOC: ED 02:53 → ERH 06:38 → 3RNO 08:54
PROVIDERS: ADMIT Internal Medicine; ATTEND Internal Medicine
DX: K56.600 Partial intestinal obstruction, unspecified as to cause (principal); K70.30 Alcoholic cirrhosis of liver without ascites; K80.20 Calculus of gallbladder without cholecystitis without obstruction; K76.6 Portal hypertension; N20.0 Calculus of kidney

== ENCOUNTER 2018-09-19 18:30 | Inpatient (IN) | payer MEDICAID, OTHER ==
[2018-09-19 18:30] VITALS: BMI 33.3
[2018-09-19] MEDS ORDERED: Sodium Chloride 0.9% 1,000 ML IV STA (19:24)
[2018-09-19] MEDS ORDERED: Morphine 2 mg/ml ISec IVP STA (19:24)
--- NOTE | 2018-09-19 19:37 | ED PDOC ---
Arrival/HPI - General Chief Complaint: Male Genitourinary Time Seen by Provider: 09/19/18 18:47 Historian: Patient - History of Present Illness Narrative History of Present Illness (Text): 09/19/18 19:33 Patient is a 45 yo M w/ pmh of cirrhosis due to alcohol, complains of b/l flank pain and upper abdominal pain which started at 8 AM, associated with fever, nausea, vomiting and 3 episodes of diarrhea. Otherwise: (-) URI, (-) CP, (-) SOB, (-) urinary symptoms, (-) melena, (-) hematochezia. Patient states that he was following up at [facility] for his cirrhosis, however he stopped going because the appointment was a month wait. Past Medical History - Cardiac Hx Cardiac Disorders: Yes Hx Peripheral Edema: Yes (+1 ankle edema) - Pulmonary Hx Respiratory Disorders: No - Neurological Hx Neurological Disorder: Yes (headaches) - HEENT Hx HEENT Disorder: Yes (eyeglasses) - Renal Hx Renal Disorder: No - Endocrine/Metabolic Hx Endocrine Disorders: No - Hematological/Oncological Hx Blood Disorders: Yes Hx Cirrhosis: Yes (dx 5 yrs ago/quit drinking vodka daily 5 yrs ago) - Integumentary Hx Dermatological Disorder: No - Musculoskeletal/Rheumatological Hx Falls: No - Gastrointestinal Hx Liver Failure: Yes (Liver cirrhosis) - Genitourinary/Gynecological Hx Genitourinary Disorders: No - Psychiatric Hx Psychophysiologic Disorder: No Hx Substance Use: No Other/Comment: pt quit drinking vodka daily 5 yrs ago due to dx of cirrhosis - Surgical History Hx Appendectomy: Yes - Anesthesia Hx Anesthesia: Yes Family/Social History Family/Social History: No Known Family HX Smoking Status: Unknown If Ever Smoked Hx Alcohol Use: No Hx Substance Use: No Allergies/Home Meds Allergies/Adverse Reactions: Allergies No Known Allergies Allergy (Verified 09/19/18 19:01) Home Medications: Home Meds Medication Instructions Recorded Confirmed Lactulose 20 gm PO BID 09/19/18 09/19/18 Physical Exam Vital Signs Temp Pulse Resp BP Pulse Ox 09/19/18 18:59 100.4 F H 92 H 18 137/89 97 Temperature: Febrile Blood Pressure: Normal Pulse: Regular Respiratory Rate: Normal Appearance: Positive for: Well-Appearing, Non-Toxic, Comfortable Pain Distress: Mild Mental Status: Positive for: Alert and Oriented X 3 - Systems Exam Head: Present: Atraumatic, Normocephalic Pupils: Present: PERRL Extroacular Muscles: Present: EOMI Conjunctiva: Present: Normal Mouth: Present: Moist Mucous Membranes Neck: Present: Normal Range of Motion. No: Meningeal Signs, MIDLINE TENDERNESS, Paraspinal Tenderness, Lymphadenopathy Respiratory/Chest: Present: Clear to Auscultation, Good Air Exchange. No: Respiratory Distress, Accessory Muscle Use Cardiovascular: Present: Regular Rate and Rhythm, Normal S1, S2. No: Murmurs Abdomen: Present: Other (negative casarez's sign). No: Tenderness, Distention, Peritoneal Signs, Rebound, Guarding Back: Present: Normal Inspection. No: CVA Tenderness, Midline Tenderness, Paraspinal Tenderness Upper Extremity: Present: Normal Inspection. No: Cyanosis, Edema Lower Extremity: Present: Normal Inspection. No: Edema Neurological: Present: GCS=15, CN II-XII Intact, Speech Normal, Motor Func Grossly Intact, Normal Sensory Function Skin: Present: Warm, Dry, Normal Color. No: Rashes Psychiatric: Present: Alert, Oriented x 3, Normal Insight, Normal Concentration Medical Decision Making ED Course and Treatment: 09/19/18 19:37 Previous medical records reviewed : patient was admitted on 09/02/18 for SBO. Patient had a CT of abd/pelvis on 09/02/18: Parenchymal liver disease. Chronic. Portal hypertension. Cholelithiasis. Diffuse thickening and enhancement of the wall of the gallbladder, probably reactive to chronic parenchymal liver disease and portal hypertension. Correlation with focal tenderness in the right upper quadrant and/or sonographic evaluation would be helpful to exclude acute inflammatory pathology of the gallbladder. Partial small bowel obstruction. A transition zone in the right lower quadrant. No bowel perforation or pneumatosis intestinalis. No mass lesion is noted. Nonobstructing right nephrolithiasis. During his admission he had an US abd : Cholelithiasis with GB wall thickening but no other signs of cholecystitis. Fatty liver. Portal hypertension. Possible retroperitoneal varices adjacent to splenic hilar region. R parapelvic renal cyst and L renal cortical cyst. Splenomegaly. Plan: -- Labs -- IV fluids -- Urinalysis -- VBG -- Influenza -- CXR -- Blood / urine cx -- Morphine / Zofran / Protonix / Ibuprofen -- Reassess and disposition -- US ABD Labs reviewed : wbc nl, lactate nl, LFTs elevated, t bili 8.9, Urinalysis +trace leuks and few wbcs noted in the urine. Rocephin 1 g IV ordered for possible UTI, pending urine cx. CXR : NAD. Rapid flu : (-). VS T 99.8 P 80 BP 112/68 R 16 O2sat 99%RA. On reevaluation, patient reports imp rovement of symptoms, denies any nausea or pain at this time. On exam, patient remains awake alert and oriented 3 in no acute distress. Neck is supple, lungs are clear to auscultation, cardiac regular rate and rhythm, abdomen soft and nontender, repeat neuro exam shows no focal findings. Case discussed with medical office asst and with Dr. Cedeño, agree with plan for observation under the hospitalist service. - RAD Interpretation Narrative RAD Interpretations (Text): US Abdomen: The liver is heterogeneous without evidence of mass or defect measuring 14 cm. There is no intra or extrahepatic biliary ductal dilatation. Reversed flow is seen in the portal vein. The common bile duct measures 4.02 mm. The gallbladder shows gallstones. The gallbladder wall is thickened measuring 0.37 cm. There is no abdominal ascites. The aorta and pancreas are not visualized due to bowel gas. The spleen is of uniform echo texture and appears enlarged measuring 16.6 x 8.5 x 8.3 cm with splenic varices. The right kidney measures 11.4 x 7.5 x 7.2 cm and the left kidney measures 12.7 x 6.2 x 7.3 cm. Right renal mid pole parapelvic cyst measures 2.4 x 2.3 x 2.4 cm. Left renal mid pole cyst measures 2 x 1.9 x 2.2 cm. Both kidneys are free of hydronephrosis. IMPRESSION: 1. Findings compatible with cirrhosis and portal hypertension. 2. Reversed flow is seen in the portal vein. 3. Splenomegaly with splenic varices. 4. Gallstones. 5. Thickened gallbladder wall, probably due to third spacing. 6. Bilateral renal cysts. Electronically signed on Sep 19, 2018 10:05:27 PM EST by: Lee Kapoor M.D., SERA Certified By ABR & CBCCT Fellowship Trained MRI and CT Specialist Radiology Orders: 09/19/18 19:23 CHEST TWO VIEWS (PA/LAT) [RAD] Stat Clay Machine Operator: Radiologist - Medication Orders Current Medication Orders: Sodium Chloride (Sodium Chloride 0.9%) 1,000 mls @ 1,000 mls/hr IV .Q1H STA Stop: 09/19/18 20:23 Discontinued Medications Ibuprofen (Motrin Tab) 600 mg PO STAT STA Stop: 09/19/18 19:25 Morphine Sulfate (Morphine) 2 mg IVP STAT STA Stop: 09/19/18 19:25 Ondansetron HCl (Zofran Inj) 4 mg IVP STAT STA Stop: 09/19/18 19:25 Pantoprazole Sodium (Protonix Inj) 40 mg IVP STAT STA Stop: 09/19/18 19:31 - PA / SLD INCLUSION TEACHER / Resident Statement /DO has reviewed & agrees with the documentation as recorded. Disposition/Present on Arrival - Present on Arrival Any Indicators Present on Arrival: No History of DVT/PE: No History of Uncontrolled Diabetes: No Urinary Catheter: No History of Decub. Ulcer: No History Surgical Site Infection Following: None - Disposition Have Diagnosis and Disposition been Completed?: Yes Diagnosis: Fever, Abdominal pain, UTI (urinary tract infection) Disposition: HOSPITALIZED Disposition Time: 23:00 Patient Plan: Observation Patient Problems: Current Active Problems Problem Status Onset Fever Acute Abdominal pain Acute UTI (urinary tract infection) Acute Condition: STABLE
[2018-09-19 19:44] LABS: EOS # 0.1 (0.0-0.7); EOS % 4.6 % (1.5-5.0); GRAN # 2.21 (1.4-6.5); HEMOGLOBIN 11.9 g/dL (14.0-18.0); LYMPH # 0.5 (1.2-3.4); LYMPH % 16.5 % (22.0-35.0); MEAN CELL VOLUME 96.7 fl (80.0-105.0); MEAN CORPUSCULAR HEMOGLOBIN 32.9 pg (25.0-35.0); MONO # 0.2 (0.1-0.6); MONO % 5.9 % (1.0-6.0); RBC 3.62 10^6/uL (3.5-6.1); RED CELL DISTRIBUTION WIDTH 16.7 % (11.5-14.5)
[2018-09-19 19:48] LABS: INR 1.84; PARTIAL THROMBOPLASTIN TIME 44.6 Seconds (25.1-36.5); PROTHROMBIN TIME 21.2 SECONDS (9.4-12.5)
[2018-09-19 19:52] LABS: ALB/GLOB RATIO 0.8 (1.1-1.8); ALBUMIN 2.9 g/dL (3.0-4.8); ALT/SGPT 51 U/L (7-56); AST/SGOT 156 U/L (17-59); BLOOD UREA NITROGEN 9 mg/dL (7-21); CALCIUM 8.4 mg/dL (8.4-10.5); GFR NON-AFRICAN AMERICAN > 60; LIPASE 71 U/L (23-300)
[2018-09-19 20:04] LABS: VENOUS BLOOD GAS BASE EXCESS 0.8 mmol/L (0.0-2.0); VENOUS BLOOD GAS PO2 61 mm/Hg (30-55); VENOUS BLOOD PH 7.35 (7.32-7.43)
[2018-09-19 20:13] LABS: PH,URINE 7.5 (4.7-8.0); URINE APPEARANCE CLEAR (CLEAR); URINE BILIRUBIN SMALL (NEGATIVE); URINE BLOOD SMALL (NEGATIVE); URINE COLOR DARK YELLOW (YELLOW); URINE GLUCOSE (UA) NEGATIVE (NEGATIVE); URINE LEUKOCYTE ESTERASE TRACE Leu/uL (NEGATIVE); URINE PROTEIN NEGATIVE mg/dL (<30 mg/dL)
[2018-09-19 20:17] LABS: URINE EPITHELIAL CELLS 0 - 2 /hpf (0-5); URINE WBC 0 - 2 /hpf (0-6)
[2018-09-19] MEDS ORDERED: cefTRIAXone 1 gm 1 GM/100 ML BAG IVPB STA (22:29)
[2018-09-20] MEDS ORDERED: Pneumococcal 23-Valent Vaccine IM ONE (00:53)
[2018-09-20] MEDS ORDERED: Influenza Vaccine 60 mcg/0.5 mL SYR (4YR UP) IM ONE (00:53)
--- NOTE | 2018-09-20 03:05 | CP.PCM.HP ---
History of Present Illness - History of Present Illness History of Present Illness: Lawrence Fan PGY1 History and Physical for Dr Brenda Cedeño Patient is a 45 yo male with a PMH of cirrhosis due to alcohol, complains of b/l flank pain and upper abdominal pain which started at 8 AM, associated with fever, nausea, vomiting and 3 episodes of diarrhea. Pt has been taking lactulose for the past 5 years, and states 3 episodes of diarrhea a day is normal for him. Pt states his abdomen has been enlarging and he has been gaining weight recently over the past 2 months. Pt denies dysuria, but reports red colored urine for the past 4 months. Pt reports headache and subjective fever. Pt states that his abdominal pain has resolved at the time of the interview. Pt states he has had a kidney stone in the past which felt similar to this. A 12 point ROS was obtained and added to the HPI where appropriate. PMH: cirrhosis, alcoholism, PSH: appendectomy FH: Mother 65 healthy. Father 42 Alcoholism SH: Denies Tobacco, Drank 10 shots of vodka daily for 6 years, quit 5 years ago. Denies illicit drugs, lives in [place] with sister, unemployed Allergies: NKDA Home meds: Lactulose, propanolol [facility] [place] Present on Admission - Present on Admission Any Indicators Present on Admission: No Review of Systems - Review of Systems Review of Systems: a 12 point ROS was obtained and added to the HPI where appropriate Past Patient History - Past Social History Smoking Status: Unknown If Ever Smoked - CARDIAC Hx Cardiac Disorders: Yes Hx Peripheral Edema: Yes (+1 ankle edema) - PULMONARY Hx Respiratory Disorders: No - NEUROLOGICAL Hx Neurological Disorder: Yes (headaches) - HEENT Hx HEENT Problems: Yes (eyeglasses) - RENAL Hx Chronic Kidney Disease: No - ENDOCRINE/METABOLIC Hx Endocrine Disorders: No - HEMATOLOGICAL/ONCOLOGICAL Hx Blood Disorders: Yes Hx Cirrhosis: Yes (dx 5 yrs ago/quit drinking vodka daily 5 yrs ago) - INTEGUMENTARY Hx Dermatological Problems: No - MUSCULOSKELETAL/RHEUMATOLOGICAL Hx Falls: No - GASTROINTESTINAL Hx Liver Failure: Yes (Liver cirrhosis) - GENITOURINARY/GYNECOLOGICAL Hx Genitourinary Disorders: No - PSYCHIATRIC Hx Psychophysiologic Disorder: No Hx Substance Use: No Other/Comment: pt quit drinking vodka daily 5 yrs ago due to dx of cirrhosis - SURGICAL HISTORY Hx Appendectomy: Yes - ANESTHESIA Hx Anesthesia: Yes Meds Allergies/Adverse Reactions: Allergies Allergy/AdvReac Type Severity Reaction Status Date / Time No Known Allergies Allergy Verified 09/19/18 19:01 Physical Exam - Constitutional Appears: Non-toxic, No Acute Distress - Head Exam Head Exam: ATRAUMATIC, NORMAL INSPECTION, NORMOCEPHALIC - Eye Exam Eye Exam: EOMI, Scleral icterus - ENT Exam ENT Exam: Mucous Membranes Moist - Neck Exam Neck exam: Positive for: Full Rom - Respiratory Exam Respiratory Exam: Clear to Auscultation Bilateral, NORMAL BREATHING PATTERN. absent: Accessory Muscle Use, Wheezes, Respiratory Distress - Cardiovascular Exam Cardiovascular Exam: RRR, +S1, +S2. absent: Diastolic murmur, Systolic Murmur - GI/Abdominal Exam GI & Abdominal Exam: Normal Bowel Sounds, Soft. absent: Tenderness - Extremities Exam Extremities exam: Positive for: full ROM, normal inspection, pedal edema, pedal pulses present. Negative for: calf tenderness - Neurological Exam Neurological exam: Alert, Oriented x3 - Psychiatric Exam Psychiatric exam: Normal Affect, Normal Mood - Skin Skin Exam: Dry, Intact, Warm Results - Vital Signs Recent Vital Signs: Last Vital Signs Temp 98.1 F 09/20/18 00:06 Pulse 66 09/20/18 00:06 Resp 20 09/20/18 00:14 BP 126/81 09/20/18 00:06 Pulse Ox 99 09/20/18 00:06 - Labs Result Diagrams: 09/19/18 19:26 09/19/18 19:26 Labs: Laboratory Results - last 24 hr 09/19/18 09/19/18 09/19/18 19:26 19:26 19:26 WBC 3.0 L RBC 3.62 Hgb 11.9 L Hct 35.0 L MCV 96.7 MCH 32.9 MCHC 34.0 RDW 16.7 H Plt Count 51 L MPV 12.0 H Gran % 73.0 H Lymph % (Auto) 16.5 L [place] % (Auto) 5.9 Eos % (Auto) 4.6 Baso % (Auto) 0.0 Gran # 2.21 Lymph # (Auto) 0.5 L [place] # (Auto) 0.2 Eos # (Auto) 0.1 Baso # (Auto) 0.00 PT 21.2 H INR 1.84 APTT 44.6 H pO2 VBG pH VBG pCO2 VBG HCO3 VBG Total CO2 VBG O2 Sat (Calc) VBG Base Excess VBG Potassium Glucose Lactate FiO2 Sodium 139 Potassium 4.2 Chloride 107 Carbon Dioxide 26 Anion Gap 10 BUN 9 Creatinine 0.6 L Est GFR ( Amer) > 60 Est GFR (Non-Af Amer) > 60 Random Glucose 115 H Calcium 8.4 Total Bilirubin 8.9 H AST 156 H D ALT 51 Alkaline Phosphatase 208 H D Total Protein 6.5 Albumin 2.9 L Globulin 3.6 Albumin/Globulin Ratio 0.8 L Lipase 71 Venous Blood Potassium Urine Color Urine Appearance Urine pH Ur Specific [place] Urine Protein Urine Glucose (UA) Urine Ketones Urine Blood Urine Nitrate Urine Bilirubin Urine Urobilinogen Ur Leukocyte Esterase Urine RBC Urine WBC Ur Epithelial Cells Influenza Typ A,B (EIA) 09/19/18 09/19/18 09/19/18 19:52 19:52 20:00 WBC RBC Hgb Hct MCV MCH MCHC RDW Plt Count MPV Gran % Lymph % (Auto) [place] % (Auto) Eos % (Auto) Baso % (Auto) Gran # Lymph # (Auto) [place] # (Auto) Eos # (Auto) Baso # (Auto) PT INR APTT pO2 61 H VBG pH 7.35 VBG pCO2 49.0 VBG HCO3 27.1 VBG Total CO2 28.6 H VBG O2 Sat (Calc) 94.1 H VBG Base Excess 0.8 VBG Potassium 4.1 Glucose 94 Lactate 1.5 FiO2 21.0 Sodium 139.0 Potassium Chloride 107.0 Carbon Dioxide Anion Gap BUN Creatinine Est GFR ( Amer) Est GFR (Non-Af Amer) Random Glucose Calcium Total Bilirubin AST ALT Alkaline Phosphatase Total Protein Albumin Globulin Albumin/Globulin Ratio Lipase Venous Blood Potassium 4.1 Urine Color Dark yellow Urine Appearance Clear Urine pH 7.5 Ur Specific [place] 1.015 Urine Protein Negative Urine Glucose (UA) Negative Urine Ketones Negative Urine Blood Small H Urine Nitrate Negative Urine Bilirubin Small H Urine Urobilinogen 1.0 H Ur Leukocyte Esterase Trace H Urine RBC 1 - 3 Urine WBC 0 - 2 Ur Epithelial Cells 0 - 2 Influenza Typ A,B (EIA) Negative for flu a/b Assessment & Plan - Assessment and Plan (Free Text) Assessment: Patient is a 45 yo male with a PMH of cirrhosis due to alcohol, complains of b/l flank pain and upper abdominal pain which started at 8 AM, associated with fever, nausea, vomiting and 3 episodes of diarrhea. Plan: History of cirrhosis/ portal HTN/ Varices - likely decompensated liver cirrhosis, ?SBP - ammonia level - Blood cultures - urine cultures - rocephin - lactulose - abdominal US - GI consulted - Surgery consulted - Urology consulted Hyperglycemia - HA1C - glucose 115, on admission Anemia - Hgb 11.9 - at base line, stable Ppx - protonix - HHD Pt seen, examined, assessment and plan discussed with Dr Brenda Fan PGY1 - Date & Time Date: 09/20/18 Time: 03:19
--- NOTE | 2018-09-20 06:25 | CP.PCM.CON ---
History of Present Illness - History of Present Illness History of Present Illness: 45M with a PMH of EtOH cirrhosis, presented to [facility] ED with complaints of abdominal pain. Patient sates pain is located along his flanks. Patient reports hematuria. He states he has a history of nephrolithiasis. States his symptoms are similar to his previous bouts of nephrolithiasis. Patient takes daily lactulose. General surgery consulted for cholelithiasis. At time of examination patient denied fever/chills, chest pain/SOB, nausea/vomiting. Reports passing flatus. Complaining of hematuria. PMHx: alcohol abuse, cirrhosis PSHx: appendectomy SocHx: Denies current EtOH use. Denies illicit drug use. In past would have about 10 shots of vodka daily. Pt reports he quit 5 years ago. Allergies: NKDA Review of Systems - Review of Systems Review of Systems: 10 pt ROS negative, except as stated in HPI Past Patient History - Past Social History Smoking Status: Unknown If Ever Smoked - CARDIAC Hx Cardiac Disorders: Yes Hx Peripheral Edema: Yes (+1 ankle edema) - PULMONARY Hx Respiratory Disorders: No - NEUROLOGICAL Hx Neurological Disorder: Yes (headaches) - HEENT Hx HEENT Problems: Yes (eyeglasses) - RENAL Hx Chronic Kidney Disease: No - ENDOCRINE/METABOLIC Hx Endocrine Disorders: No - HEMATOLOGICAL/ONCOLOGICAL Hx Blood Disorders: Yes Hx Cirrhosis: Yes (dx 5 yrs ago/quit drinking vodka daily 5 yrs ago) - INTEGUMENTARY Hx Dermatological Problems: No - MUSCULOSKELETAL/RHEUMATOLOGICAL Hx Falls: No - GASTROINTESTINAL Hx Liver Failure: Yes (Liver cirrhosis) - GENITOURINARY/GYNECOLOGICAL Hx Genitourinary Disorders: No - PSYCHIATRIC Hx Psychophysiologic Disorder: No Hx Substance Use: No Other/Comment: pt quit drinking vodka daily 5 yrs ago due to dx of cirrhosis - SURGICAL HISTORY Hx Appendectomy: Yes - ANESTHESIA Hx Anesthesia: Yes Meds Allergies/Adverse Reactions: Allergies Allergy/AdvReac Type Severity Reaction Status Date / Time No Known Allergies Allergy Verified 09/19/18 19:01 - Medications Medications: Current Medications Ceftriaxone Sodium (Rocephin 1 Gram Ivpb) 1 gm in 100 mls @ 100 mls/hr IVPB DAILY ALCON; Protocol Lactulose (Enulose) 20 gm PO TID ALCON Pantoprazole Sodium (Protonix Inj) 40 mg IVP DAILY ALCON Physical Exam - Constitutional Appears: No Acute Distress - Head Exam Head Exam: NORMOCEPHALIC - Eye Exam Eye Exam: EOMI, Normal appearance - ENT Exam ENT Exam: Mucous Membranes Moist - Respiratory Exam Respiratory Exam: NORMAL BREATHING PATTERN - Cardiovascular Exam Cardiovascular Exam: +S1, +S2 - GI/Abdominal Exam GI & Abdominal Exam: Distended, Soft. absent: Firm, Guarding, Rebound, Rigid, Tenderness - Neurological Exam Neurological exam: Alert, Oriented x3 - Psychiatric Exam Psychiatric exam: Normal Mood - Skin Skin Exam: Dry, Intact, Warm Results - Vital Signs Recent Vital Signs: Last Vital Signs Temp 98.1 F 09/20/18 00:06 Pulse 66 09/20/18 00:06 Resp 20 09/20/18 00:14 BP 126/81 09/20/18 00:06 Pulse Ox 99 09/20/18 00:06 - Labs Result Diagrams: 09/20/18 06:00 09/20/18 06:00 Labs: Laboratory Results - last 24 hr 09/19/18 09/19/18 09/19/18 19:26 19:26 19:26 WBC 3.0 L RBC 3.62 Hgb 11.9 L Hct 35.0 L MCV 96.7 MCH 32.9 MCHC 34.0 RDW 16.7 H Plt Count 51 L MPV 12.0 H Gran % 73.0 H Lymph % (Auto) 16.5 L [place] % (Auto) 5.9 Eos % (Auto) 4.6 Baso % (Auto) 0.0 Gran # 2.21 Lymph # (Auto) 0.5 L [place] # (Auto) 0.2 Eos # (Auto) 0.1 Baso # (Auto) 0.00 PT 21.2 H INR 1.84 APTT 44.6 H pO2 VBG pH VBG pCO2 VBG HCO3 VBG Total CO2 VBG O2 Sat (Calc) VBG Base Excess VBG Potassium Glucose Lactate FiO2 Sodium 139 Potassium 4.2 Chloride 107 Carbon Dioxide 26 Anion Gap 10 BUN 9 Creatinine 0.6 L Est GFR ( Amer) > 60 Est GFR (Non-Af Amer) > 60 Random Glucose 115 H Calcium 8.4 Total Bilirubin 8.9 H AST 156 H D ALT 51 Alkaline Phosphatase 208 H D Total Protein 6.5 Albumin 2.9 L Globulin 3.6 Albumin/Globulin Ratio 0.8 L Lipase 71 Venous Blood Potassium Urine Color Urine Appearance Urine pH Ur Specific [place] Urine Protein Urine Glucose (UA) Urine Ketones Urine Blood Urine Nitrate Urine Bilirubin Urine Urobilinogen Ur Leukocyte Esterase Urine RBC Urine WBC Ur Epithelial Cells Influenza Typ A,B (EIA) 09/19/18 09/19/18 09/19/18 19:52 19:52 20:00 WBC RBC Hgb Hct MCV MCH MCHC RDW Plt Count MPV Gran % Lymph % (Auto) [place] % (Auto) Eos % (Auto) Baso % (Auto) Gran # Lymph # (Auto) [place] # (Auto) Eos # (Auto) Baso # (Auto) PT INR APTT pO2 61 H VBG pH 7.35 VBG pCO2 49.0 VBG HCO3 27.1 VBG Total CO2 28.6 H VBG O2 Sat (Calc) 94.1 H VBG Base Excess 0.8 VBG Potassium 4.1 Glucose 94 Lactate 1.5 FiO2 21.0 Sodium 139.0 Potassium Chloride 107.0 Carbon Dioxide Anion Gap BUN Creatinine Est GFR ( Amer) Est GFR (Non-Af Amer) Random Glucose Calcium Total Bilirubin AST ALT Alkaline Phosphatase Total Protein Albumin Globulin Albumin/Globulin Ratio Lipase Venous Blood Potassium 4.1 Urine Color Dark yellow Urine Appearance Clear Urine pH 7.5 Ur Specific [place] 1.015 Urine Protein Negative Urine Glucose (UA) Negative Urine Ketones Negative Urine Blood Small H Urine Nitrate Negative Urine Bilirubin Small H Urine Urobilinogen 1.0 H Ur Leukocyte Esterase Trace H Urine RBC 1 - 3 Urine WBC 0 - 2 Ur Epithelial Cells 0 - 2 Influenza Typ A,B (EIA) Negative for flu a/b Assessment & Plan - Assessment and Plan (Free Text) Assessment: 43M with history of EtOH cirrhosis with hematuria Plan: Child Hampton Score Class C: Perioperative mortality risk ~82% MELD score: 22 points. Estimated 3 month mortality risk ~19.6% Patient is extremely high risk surgical candidate Consider liver transplant Patient's symptoms are not related to gallbladder pathology. No plans for surgery at this present time. F/u urology recs F/u GI recs F/u AM labs Medical management per primary team D/w Dr. Velasquez Diop PGY3
[2018-09-20 07:00] LABS: BASO # 0.01 K/mm3 (0.0-2.0); BASO % 0.5 % (0.0-3.0); EOS # 0.2 (0.0-0.7); EOS % 7.9 % (1.5-5.0); GRAN # 0.86 (1.4-6.5); HEMOGLOBIN 11.2 g/dL (14.0-18.0); LYMPH # 0.7 (1.2-3.4); LYMPH % 36.1 % (22.0-35.0); MEAN CELL VOLUME 96.5 fl (80.0-105.0); MEAN CORPUSCULAR HGB CONC 34.3 g/dl (31.0-37.0); MEAN PLATELET VOLUME 10.8 fl (7.0-11.0); MONO # 0.2 (0.1-0.6); MONO % 10.5 % (1.0-6.0); RBC 3.39 10^6/uL (3.5-6.1); RED CELL DISTRIBUTION WIDTH 16.4 % (11.5-14.5)
[2018-09-20 07:11] LABS: PLATELET COUNT 36 10^3/uL (120.0-450.0); WHITE BLOOD COUNT 1.9 10^3/uL (4.5-11.0)
[2018-09-20 07:16] LABS: ALB/GLOB RATIO 0.7 (1.1-1.8); ALBUMIN 2.3 g/dL (3.0-4.8); ALT/SGPT 50 U/L (7-56); AST/SGOT 110 U/L (17-59); BLOOD UREA NITROGEN 13 mg/dL (7-21); CALCIUM 8.1 mg/dL (8.4-10.5); GFR NON-AFRICAN AMERICAN > 60
[2018-09-20] MEDS: cefTRIAXone 1 gm 1 GM/100 ML BAG IVPB SCH (09:18)
--- NOTE | 2018-09-20 09:47 | CP.PCM.CON ---
<DanishadestineyNilo - Last Filed: 09/20/18 11:46> History of Present Illness - History of Present Illness History of Present Illness: PGY6 GI Fellow Consult Note Of note, patient has another [facility] EMR chart with admissions and prior endoscopic procedures documented as performed at [facility] with the name Juanjose Rivera and . Patient is a 43yo male with PMHx significant for suicidal ideation (as recent as 02/2018), decompensated alcohol cirrhosis c/b hepatic encephalopathy, currently sober approximately 7 months (according to ER visit following EtOH use in 02/2018) who presented to the ED with flank pain, nausea and vomiting. The patient is a poor and inaccurate historian. The patient states his flank pain has been intermittent for one week, accompanied by dysuria. He has also noticed hematuria for the past one month but has not had any investigation in to this issue. Our service has been consulted for management of the patient's known cirrhosis. He was previously followed for his cirrhosis at the [facility] with Dr Haley and had work up including routine MELD labs, imaging and had EGD/colonoscopy in 2015. In August 2016 he was referred to [facility] for transplant evaluation, but per patient he has not followed up appropriately as directed and has not been seen by Dr Haley since 08/2016. At that time, he had been nonadherent and missed multiple clinic appointments. He was suffering with HE then, treated and maintained on Lactulose alone. He did not have varices on EGD in 2016 but did have a distal esophageal diverticulum. MELD was 22 at that time. Currently, at home, he admits to adherence with Lactulose and has 2-3 loose bowel movements each day. Denies any history of ascites, SBP, paracentesis or prior diuretic use. Denies any episodes of hematemesis, variceal ligation. 12 system ROS performed and negative except where stated PMHx: See HPI PSHx: Appendectomy FHx: Discussed with patient and noncontributory Social: Former EtOH abuse, possible ongoing use (most recent documented use 02/2018); denies tobacco or illicit drug use Endo: Colon - 04/09/16 - internal hemorrhoids EGD - 02/06/16 - LA Grade B esophagitis, esophageal candidiasis, esophageal diverticulum, portal hypertensive gastropathy, duodenal erosions Past Patient History - Past Social History Smoking Status: Unknown If Ever Smoked - CARDIAC Hx Cardiac Disorders: Yes Hx Peripheral Edema: Yes (+1 ankle edema) - PULMONARY Hx Respiratory Disorders: No - NEUROLOGICAL Hx Neurological Disorder: Yes (headaches) - HEENT Hx HEENT Problems: Yes (eyeglasses) - RENAL Hx Chronic Kidney Disease: No - ENDOCRINE/METABOLIC Hx Endocrine Disorders: No - HEMATOLOGICAL/ONCOLOGICAL Hx Blood Disorders: Yes Hx Cirrhosis: Yes (dx 5 yrs ago/quit drinking vodka daily 5 yrs ago) - INTEGUMENTARY Hx Dermatological Problems: No - MUSCULOSKELETAL/RHEUMATOLOGICAL Hx Falls: No - GASTROINTESTINAL Hx Liver Failure: Yes (Liver cirrhosis) - GENITOURINARY/GYNECOLOGICAL Hx Genitourinary Disorders: No - PSYCHIATRIC Hx Psychophysiologic Disorder: No Hx Substance Use: No Other/Comment: pt quit drinking vodka daily 5 yrs ago due to dx of cirrhosis - SURGICAL HISTORY Hx Appendectomy: Yes - ANESTHESIA Hx Anesthesia: Yes Meds Allergies/Adverse Reactions: Allergies Allergy/AdvReac Type Severity Reaction Status Date / Time No Known Allergies Allergy Verified 09/19/18 19:01 - Medications Medications: Current Medications Ceftriaxone Sodium (Rocephin 1 Gram Ivpb) 1 gm in 100 mls @ 100 mls/hr IVPB DAILY [facility]; Protocol Last Admin: 09/20/18 09:18 Dose: 100 mls/hr Lactulose (Enulose) 20 gm PO TID [facility] Last Admin: 09/20/18 09:18 Dose: 20 gm Pantoprazole Sodium (Protonix Inj) 40 mg IVP DAILY [facility] Last Admin: 09/20/18 09:18 Dose: 40 mg Physical Exam - Constitutional Appears: Non-toxic, No Acute Distress - Eye Exam Eye Exam: EOMI, PERRL, Scleral icterus - ENT Exam ENT Exam: Mucous Membranes Moist - Respiratory Exam Respiratory Exam: Clear to Auscultation Bilateral. absent: Rales, Rhonchi, Wheezes - Cardiovascular Exam Cardiovascular Exam: RRR, +S1, +S2 - GI/Abdominal Exam GI & Abdominal Exam: Normal Bowel Sounds, Soft. absent: Distended, Firm, Guarding, Hernia, Organomegaly, Rigid, Tenderness Additional comments: no shifting dullness noted - Extremities Exam Extremities exam: Positive for: normal inspection. Negative for: pedal edema - Neurological Exam Neurological exam: Alert, Oriented x3 - Psychiatric Exam Psychiatric exam: Normal Affect, Normal Mood - Skin Skin Exam: Dry, Warm Additional comments: jaundice Results - Vital Signs Recent Vital Signs: Last Vital Signs Temp 97.9 F 09/20/18 06:00 Pulse 68 09/20/18 06:00 Resp 19 09/20/18 06:00 BP 100/61 09/20/18 06:00 Pulse Ox 96 09/20/18 06:00 - Labs Result Diagrams: 09/20/18 06:00 09/20/18 06:00 Labs: Laboratory Results - last 24 hr 09/19/18 09/19/18 09/19/18 19:26 19:26 19:26 WBC 3.0 L RBC 3.62 Hgb 11.9 L Hct 35.0 L MCV 96.7 MCH 32.9 MCHC 34.0 RDW 16.7 H Plt Count 51 L MPV 12.0 H Gran % 73.0 H Lymph % (Auto) 16.5 L Starke % (Auto) 5.9 Eos % (Auto) 4.6 Baso % (Auto) 0.0 Gran # 2.21 Lymph # (Auto) 0.5 L Starke # (Auto) 0.2 Eos # (Auto) 0.1 Baso # (Auto) 0.00 PT 21.2 H INR 1.84 APTT 44.6 H pO2 VBG pH VBG pCO2 VBG HCO3 VBG Total CO2 VBG O2 Sat (Calc) VBG Base Excess VBG Potassium Glucose Lactate FiO2 Sodium 139 Potassium 4.2 Chloride 107 Carbon Dioxide 26 Anion Gap 10 BUN 9 Creatinine 0.6 L Est GFR ( Amer) > 60 Est GFR (Non-Af Amer) > 60 Random Glucose 115 H Calcium 8.4 Total Bilirubin 8.9 H AST 156 H D ALT 51 Alkaline Phosphatase 208 H D Ammonia Total Protein 6.5 Albumin 2.9 L Globulin 3.6 Albumin/Globulin Ratio 0.8 L Lipase 71 Venous Blood Potassium Urine Color Urine Appearance Urine pH Ur Specific [place] Urine Protein Urine Glucose (UA) Urine Ketones Urine Blood Urine Nitrate Urine Bilirubin Urine Urobilinogen Ur Leukocyte Esterase Urine RBC Urine WBC Ur Epithelial Cells Influenza Typ A,B (EIA) 09/19/18 09/19/18 09/19/18 19:52 19:52 20:00 WBC RBC Hgb Hct MCV MCH MCHC RDW Plt Count MPV Gran % Lymph % (Auto) Starke % (Auto) Eos % (Auto) Baso % (Auto) Gran # Lymph # (Auto) Starke # (Auto) Eos # (Auto) Baso # (Auto) PT INR APTT pO2 61 H VBG pH 7.35 VBG pCO2 49.0 VBG HCO3 27.1 VBG Total CO2 28.6 H VBG O2 Sat (Calc) 94.1 H VBG Base Excess 0.8 VBG Potassium 4.1 Glucose 94 Lactate 1.5 FiO2 21.0 Sodium 139.0 Potassium Chloride 107.0 Carbon Dioxide Anion Gap BUN Creatinine Est GFR ( Amer) Est GFR (Non-Af Amer) Random Glucose Calcium Total Bilirubin AST ALT Alkaline Phosphatase Ammonia Total Protein Albumin Globulin Albumin/Globulin Ratio Lipase Venous Blood Potassium 4.1 Urine Color Dark yellow Urine Appearance Clear Urine pH 7.5 Ur Specific [place] 1.015 Urine Protein Negative Urine Glucose (UA) Negative Urine Ketones Negative Urine Blood Small H Urine Nitrate Negative Urine Bilirubin Small H Urine Urobilinogen 1.0 H Ur Leukocyte Esterase Trace H Urine RBC 1 - 3 Urine WBC 0 - 2 Ur Epithelial Cells 0 - 2 Influenza Typ A,B (EIA) Negative for flu a/b 09/20/18 09/20/18 09/20/18 06:00 06:00 06:00 WBC 1.9 L* D RBC 3.39 L Hgb 11.2 L Hct 32.7 L MCV 96.5 MCH 33.0 MCHC 34.3 RDW 16.4 H Plt Count 36 L* MPV 10.8 Gran % 45.0 L Lymph % (Auto) 36.1 H Starke % (Auto) 10.5 H Eos % (Auto) 7.9 H Baso % (Auto) 0.5 Gran # 0.86 L Lymph # (Auto) 0.7 L Starke # (Auto) 0.2 Eos # (Auto) 0.2 Baso # (Auto) 0.01 PT INR APTT pO2 VBG pH VBG pCO2 VBG HCO3 VBG Total CO2 VBG O2 Sat (Calc) VBG Base Excess VBG Potassium Glucose Lactate FiO2 Sodium 139 Potassium 3.7 Chloride 109 H Carbon Dioxide 26 Anion Gap 8 L BUN 13 Creatinine 0.6 L Est GFR ( Amer) > 60 Est GFR (Non-Af Amer) > 60 Random Glucose 94 Calcium 8.1 L Total Bilirubin 10.6 H AST 110 H D ALT 50 Alkaline Phosphatase 139 H D Ammonia 48 H Total Protein 5.6 L Albumin 2.3 L Globulin 3.2 Albumin/Globulin Ratio 0.7 L Lipase Venous Blood Potassium Urine Color Urine Appearance Urine pH Ur Specific [place] Urine Protein Urine Glucose (UA) Urine Ketones Urine Blood Urine Nitrate Urine Bilirubin Urine Urobilinogen Ur Leukocyte Esterase Urine RBC Urine WBC Ur Epithelial Cells Influenza Typ A,B (EIA) Assessment & Plan - Assessment and Plan (Free Text) Assessment: Patient is a 43yo male with PMHx significant for suicidal ideation (as recent as 02/2018), decompensated alcohol cirrhosis c/b hepatic encephalopathy, currently sober approximately 7 months (according to ER visit following EtOH use in 8) who presented to the ED with flank pain, nausea and vomiting. Our service has been consulted for management of the patient's known cirrhosis -EtOH cirrhosis with decompensation -Pancytopenia -Hepatic encephalopathy -Flank pain, nephrolithiasis -Hematuria -H/O depression and suicidal ideation Plan: -Concern for recidivism/active EtOH intake given lab work -Check serum EtOH level - was not obtained on admission -CT and U/S reviewed with gallstones noted - questionable punctate calcification on CT unclear if choledocolith - R/O with MRCP -Check Viral Hepatitis profile and AFP -No indication for diuretics in absence of ascites -Continue Lactulose and titrate dose to 2-3 BM/day -Do not trend ammonia -2g low Na diet, encourage adequate protein intake -Consider psychiatric evaluation -Consider urology evaluation - hematuria on U/A and nephrolithiasis noted -Patient will benefit from liver transplant evaluation and stressed importance of compliance with outpatient follow up *MELD-Na: 23 *CTP: C - Date & Time Date: 09/20/18 Time: 07:45 <Dieudonne Ahumada V - Last Filed: 09/20/18 23:54> Meds - Medications Medications: Current Medications Ceftriaxone Sodium (Rocephin 1 Gram Ivpb) 1 gm in 100 mls @ 100 mls/hr IVPB DAILY [facility]; Protocol Last Admin: 09/20/18 09:18 Dose: 100 mls/hr Lactulose (Enulose) 20 gm PO TID [facility] Last Admin: 09/20/18 18:11 Dose: 20 gm Pantoprazole Sodium (Protonix Inj) 40 mg IVP DAILY [facility] Last Admin: 09/20/18 09:18 Dose: 40 mg Results - Vital Signs Recent Vital Signs: Last Vital Signs Temp 97.5 F L 09/20/18 18:40 Pulse 70 09/20/18 18:40 Resp 17 09/20/18 18:40 BP 122/76 09/20/18 18:40 Pulse Ox 95 09/20/18 17:11 - Labs Result Diagrams: 09/20/18 06:00 09/20/18 06:00 Labs: Laboratory Results - last 24 hr 09/20/18 09/20/18 09/20/18 06:00 06:00 06:00 WBC 1.9 L* D RBC 3.39 L Hgb 11.2 L Hct 32.7 L MCV 96.5 MCH 33.0 MCHC 34.3 RDW 16.4 H Plt Count 36 L* MPV 10.8 Gran % 45.0 L Lymph % (Auto) 36.1 H Starke % (Auto) 10.5 H Eos % (Auto) 7.9 H Baso % (Auto) 0.5 Gran # 0.86 L Lymph # (Auto) 0.7 L Starke # (Auto) 0.2 Eos # (Auto) 0.2 Baso # (Auto) 0.01 Neutrophils % (Manual) 22 L Lymphocytes % (Manual) 53 H Atypical Lymphs % 4 H Monocytes % (Manual) 12 H Eosinophils % (Manual) 8 H Platelet Evaluation Low Polychromasia Slight Hypochromasia 1+ Anisocytosis (manual) 1+ Tear Drop Cells Slight Ovalocytes Slight Stomatocytes Slight Sodium Potassium Chloride Carbon Dioxide Anion Gap BUN Creatinine Est GFR ( Amer) Est GFR (Non-Af Amer) Random Glucose Hemoglobin A1c 4.1 L Calcium Total Bilirubin AST ALT Alkaline Phosphatase Ammonia 48 H Total Protein Albumin Globulin Albumin/Globulin Ratio Alpha Fetoprotein Alcohol, Quantitative Hepatitis A IgM Ab Hep Bs Antigen Hep B Core IgM Ab Hepatitis C Antibody Blood Type Blood Type Confirm Antibody Screen Crossmatch BBK History Checked 09/20/18 09/20/18 09/20/18 06:00 06:00 08:30 WBC RBC Hgb Hct MCV MCH MCHC RDW Plt Count MPV Gran % Lymph % (Auto) Starke % (Auto) Eos % (Auto) Baso % (Auto) Gran # Lymph # (Auto) Starke # (Auto) Eos # (Auto) Baso # (Auto) Neutrophils % (Manual) Lymphocytes % (Manual) Atypical Lymphs % Monocytes % (Manual) Eosinophils % (Manual) Platelet Evaluation Polychromasia Hypochromasia Anisocytosis (manual) Tear Drop Cells Ovalocytes Stomatocytes Sodium 139 Potassium 3.7 Chloride 109 H Carbon Dioxide 26 Anion Gap 8 L BUN 13 Creatinine 0.6 L Est GFR ( Amer) > 60 Est GFR (Non-Af Amer) > 60 Random Glucose 94 Hemoglobin A1c Calcium 8.1 L Total Bilirubin 10.6 H AST 110 H D ALT 50 Alkaline Phosphatase 139 H D Ammonia Total Protein 5.6 L Albumin 2.3 L Globulin 3.2 Albumin/Globulin Ratio 0.7 L Alpha Fetoprotein Alcohol, Quantitative < 10 Hepatitis A IgM Ab Negative Hep Bs Antigen Negative Hep B Core IgM Ab Negative Hepatitis C Antibody Negative Blood Type Blood Type Confirm Antibody Screen Crossmatch BBK History Checked 09/20/18 09/20/18 09/20/18 08:30 15:00 15:37 WBC RBC Hgb Hct MCV MCH MCHC RDW Plt Count MPV Gran % Lymph % (Auto) Starke % (Auto) Eos % (Auto) Baso % (Auto) Gran # Lymph # (Auto) Starke # (Auto) Eos # (Auto) Baso # (Auto) Neutrophils % (Manual) Lymphocytes % (Manual) Atypical Lymphs % Monocytes % (Manual) Eosinophils % (Manual) Platelet Evaluation Polychromasia Hypochromasia Anisocytosis (manual) Tear Drop Cells Ovalocytes Stomatocytes Sodium Potassium Chloride Carbon Dioxide Anion Gap BUN Creatinine Est GFR ( Amer) Est GFR (Non-Af Amer) Random Glucose Hemoglobin A1c Calcium Total Bilirubin AST ALT Alkaline Phosphatase Ammonia Total Protein Albumin Globulin Albumin/Globulin Ratio Alpha Fetoprotein 3.7 Alcohol, Quantitative Hepatitis A IgM Ab Hep Bs Antigen Hep B Core IgM Ab Hepatitis C Antibody Blood Type O POSITIVE Blood Type Confirm O POSITIVE Antibody Screen Negative Crossmatch See Detail BBK History Checked No verified bt Attending/Attestation - Attestation I have personally seen and examined this patient.: Yes I have fully participated in the care of the patient.: Yes I have reviewed all pertinent clinical information: Yes Notes (Text): p 09/20/18 23:53
--- NOTE | 2018-09-20 11:08 | RAD ---
Date of service: 09/19/2018 HISTORY: Hematuria COMPARISON: 09/19/2018. TECHNIQUE: Chest PA and lateral FINDINGS: LINES AND TUBES: None. LUNG AND PLEURA: The lungs are well inflated and clear. No pleural effusion or pneumothorax. HEART AND MEDIASTINUM: The heart is not enlarged. No aortic atherosclerotic calcification present. The hilar and mediastinal contours are within normal limits. SKELETAL STRUCTURES: The bony structures are within normal limits for the patient's age. VISUALIZED UPPER ABDOMEN: Normal. OTHER FINDINGS: None. IMPRESSION: No active pulmonary disease.
[2018-09-20 11:26] LABS: NEUTROPHIL 22 % (50.0-70.0)
[2018-09-20 11:27] LABS: ATYPICAL LYMPHOCYTE 4 % (0.0-0.0); EOSINOPHIL 8 % (0.0-3.0); LYMPHOCYTE 53 % (22.0-35.0); MONOCYTE 12 % (1.0-6.0); PLATELET ESTIMATE LOW (NORMAL); POLYCHROMASIA SLIGHT
--- NOTE | 2018-09-20 11:27 | US ---
Date of service: 09/19/2018 HISTORY: Abdominal pain, h/o gallstones COMPARISON: CT abdomen and pelvis from 09/02/2018. TECHNIQUE: Sonographic evaluation of the abdomen. FINDINGS: LIVER: Measures 14.0 cm. There is diffuse increased echogenicity of the liver parenchyma. No mass. No intrahepatic bile duct dilatation. GALLBLADDER: The gallbladder well distended and there are multiple gallstones. There is diffuse wall thickening and mild pericholecystic fluid likely secondary to hepatic cirrhosis. The sonographic Copeland's sign is negative. COMMON BILE DUCT: Measures 4.0 mm. No stones. No dilatation. PANCREAS: Obscured by bowel gas. No mass. No ductal dilatation. RIGHT KIDNEY: Measures 11.4cm. Normal echogenicity. No calculus, mass, or hydronephrosis. There is a 2.4 x 2.3 x 2.4 cm parapelvic cyst in the interpolar region. LEFT KIDNEY: Measures 12.7cm. Normal echogenicity. No calculus, mass, or hydronephrosis. There is a 2.0 x 1.9 x 2.2 cm simple cyst in the interpolar region. SPLEEN: Enlarged and measures 16.6 cm. 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 AORTA: Obscured by bowel gas. IVC: Obscured by bowel gas. OTHER FINDINGS: There is reversal of flow in the portal vein. IMPRESSION: Cirrhosis of liver, moderate splenomegaly and perisplenic varices. Reversal of flow in the portal vein. Cholelithiasis.
[2018-09-20 11:28] LABS: ANISOCYTOSIS 1+; HYPOCHROMIA 1+; TEAR DROP CELLS SLIGHT
[2018-09-20 11:29] LABS: OVALOCYTES SLIGHT; STOMATOCYTE SLIGHT
[2018-09-20 12:18] LABS: HEPATITIS B SURFACE AG Negative (NEGATIVE)
[2018-09-20 12:24] LABS: HEPATITIS A IGM NEGATIVE (NEGATIVE); HEPATITIS B CORE AB NEGATIVE (NEGATIVE)
[2018-09-20 12:35] LABS: HEPATITIS C ANTIBODY NEGATIVE (NEGATIVE)
--- NOTE | 2018-09-20 13:14 | CT ---
Date of service: 09/20/2018 PROCEDURE: CT Abdomen and Pelvis without intravenous contrast HISTORY: hematuria, nephrolithiasis, cirrosis, ascities COMPARISON: 09/02/2018 TECHNIQUE: CT scan of the abdomen and pelvis was performed without administration of intravenous contrast. Oral contrast was not administered. Coronal and sagittal reformatted images were obtained. . Radiation dose: Total exam DLP = 1060.63 mGy-cm. This CT exam was performed using one or more of the following dose reduction techniques: Automated exposure control, adjustment of the mA and/or kV according to patient size, and/or use of iterative reconstruction technique. FINDINGS: LOWER THORAX: The visualized lungs are clear. LIVER: Small cirrhotic liver. No intrahepatic ductal dilatation. GALLBLADDER AND BILE DUCTS: There are multiple gallstones. There is diffuse gallbladder wall thickening and pericholecystic fluid, secondary to cirrhosis and hypoproteinemia. PANCREAS: Normal in size. No ductal dilatation. SPLEEN: There is severe splenomegaly. 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 ADRENALS: Normal in size. No discrete nodule. KIDNEYS AND URETERS: Both kidneys are normal in size. There are stable parapelvic cyst in the right kidney and simple cortical cyst in the interpolar region of the left kidney. Again seen are small nonobstructing stones in the right kidney and a solitary small nonobstructing stone in the interpolar region of the left kidney. VASCULATURE: No aortic aneurysm. No aortic atherosclerotic calcification or mural plaque present. BOWEL: The small bowel loops are normal in caliber. The colon is normal in size. No bowel dilatation or wall thickening. No bowel obstruction. APPENDIX: Surgically absent. PERITONEUM: No free fluid. No free air. LYMPH NODES: No enlarged lymph nodes. BLADDER: Well distended and grossly normal in appearance. REPRODUCTIVE: The prostate gland is normal in size BONES: No acute fracture. Within normal limits for the patient's age. OTHER FINDINGS: None. IMPRESSION: 1. Cirrhosis of liver with portal hypertension, severe splenomegaly and perisplenic varices. 2. Cholelithiasis. 3. Nonobstructing renal stones, more numerous on the right.
[2018-09-21 07:06] LABS: BASO # 0.01 K/mm3 (0.0-2.0); BASO % 0.5 % (0.0-3.0); EOS # 0.1 (0.0-0.7); EOS % 6.8 % (1.5-5.0); GRAN # 0.67 (1.4-6.5); GRAN % 32.3 % (50.0-68.0); HEMOGLOBIN 10.8 g/dL (14.0-18.0); LYMPH # 1.1 (1.2-3.4); LYMPH % 50.7 % (22.0-35.0); MEAN CELL VOLUME 95.7 fl (80.0-105.0); MEAN CORPUSCULAR HGB CONC 34.5 g/dl (31.0-37.0); MEAN PLATELET VOLUME 10.9 fl (7.0-11.0); MONO # 0.2 (0.1-0.6); MONO % 9.7 % (1.0-6.0); RBC 3.27 10^6/uL (3.5-6.1); RED CELL DISTRIBUTION WIDTH 16.1 % (11.5-14.5); WHITE BLOOD COUNT 2.1 10^3/uL (4.5-11.0)
[2018-09-21 07:09] VITALS: RESP 20
[2018-09-21 07:35] LABS: ALB/GLOB RATIO 0.7 (1.1-1.8); ALBUMIN 2.4 g/dL (3.0-4.8); ALT/SGPT 46 U/L (7-56); AST/SGOT 90 U/L (17-59); BLOOD UREA NITROGEN 9 mg/dL (7-21); CALCIUM 8.5 mg/dL (8.4-10.5); GFR NON-AFRICAN AMERICAN > 60
[2018-09-21 08:00] LABS: PLATELET COUNT 48 10^3/uL (120.0-450.0)
[2018-09-21 08:33] LABS: PLATELET COUNT MANUAL 56 K/mm3 (120-450)
[2018-09-21] MEDS: cefTRIAXone 1 gm 1 GM/100 ML BAG IVPB SCH (09:05)
--- NOTE | 2018-09-21 13:09 | CP.PCM.PN ---
<Earline Driver - Last Filed: 09/21/18 13:06> Subjective - Date & Time of Evaluation Date of Evaluation: 09/21/18 Time of Evaluation: 13:06 - Subjective Subjective: Gastroenterology Fellow/PGY6 Progress Note Patient notes resolved bilateral flank pain and vomiting. Tolerating diet. Admits to bowel movement yesterday. A 12-point review of systems negative except for as above. Objective - Vital Signs/Intake and Output Vital Signs (last 24 hours): Temp Pulse Resp BP Pulse Ox 98.4 F 72 20 122/83 98 09/21/18 06:00 09/21/18 06:00 09/21/18 06:00 09/21/18 06:00 09/21/18 06:00 Intake and Output: 09/21/18 09/21/18 06:59 18:59 Intake Total 580 Balance 580 - Medications Medications: Current Medications Lactulose (Enulose) 20 gm PO TID [facility] Last Admin: 09/21/18 09:04 Dose: 20 gm Pantoprazole Sodium (Protonix Ec Tab) 40 mg PO ACB [facility] - Labs Labs: 09/21/18 06:15 09/21/18 06:15 PT 21.2 SECONDS (9.4-12.5) H 09/19/18 19:26 INR 1.84 09/19/18 19:26 APTT 44.6 Seconds (25.1-36.5) H 09/19/18 19:26 - Constitutional Appears: Non-toxic, No Acute Distress - Head Exam Head Exam: ATRAUMATIC, NORMOCEPHALIC - Eye Exam Eye Exam: EOMI, PERRL. absent: Scleral icterus Pupil Exam: PERRL. absent: Miosis, Mydriatic - ENT Exam ENT Exam: Mucous Membranes Moist, Normal Oropharynx - Neck Exam Neck Exam: Full ROM, Normal Inspection - Respiratory Exam Respiratory Exam: Clear to Ausculation Bilateral. absent: Rales, Rhonchi, Wheezes - Cardiovascular Exam Cardiovascular Exam: RRR, +S1, +S2. absent: Gallop, Rubs - GI/Abdominal Exam GI & Abdominal Exam: Soft, Normal Bowel Sounds. absent: Distended, Firm, Guarding, Rigid, Tenderness, Organomegaly - Extremities Exam Extremities Exam: Normal Inspection. absent: Pedal Edema - Neurological Exam Neurological Exam: Alert, Awake Additional comments: no asterixis - Psychiatric Exam Psychiatric exam: Normal Affect, Normal Mood - Skin Skin Exam: Dry, Intact, Normal Color, Warm Assessment and Plan - Assessment and Plan (Free Text) Assessment: 43 year old male with PMH of Depression, suicidal ideation (as recent as 02/2018), decompensated alcohol cirrhosis 2/2 hepatic encephalopathy (endorsed sobriety, last ETOH use documented as 02/2018) presenting with bilateral flank pain, hematuria, and vomiting. Active treatment of GI consultation for cirrhosis management. Prior EGD 01/2016 showed LAGB esophagitis, esophageal candidiasis, distal esophageal diverticulum, portal hypertensive gastropathy, and duodenal erosions. Prior colonoscopy 03/2016 showed internal hemorrhoids. Plan: -MELD 23, CTP C, DF 51.2 -possible alcoholic hepatitis -elevated LFTs concerning for active alcohol use for recidivism -will order urine ethyl glucoronide -serum EtOH level <10 -pending MRCP with abdomen w/o contrast to rule out choledocholithiasis -ordered direct bilirubin -ordered Duplex U/S to evaluate portal system for thrombosis -hepatitis panel negative, AFP 3.7 -No indication for diuretics in absence of ascites -continue Lactulose, titrate to 2-3 BMs per day -2g low Na diet, encourage adequate protein intake -consider psychiatric evaluation -consider urology evaluation - hematuria on U/A and nephrolithiasis noted -urine culture/blood cultures negative, Chest xray- negative -patient will benefit from tertiary care evaluation for OLT -will follow clinical course <Dieudonne Ahumada V - Last Filed: 09/22/18 01:11> Objective - Vital Signs/Intake and Output Vital Signs (last 24 hours): Temp Pulse Resp BP Pulse Ox 98.4 F 66 20 118/69 97 09/21/18 17:05 09/21/18 17:05 09/21/18 17:05 09/21/18 17:05 09/21/18 17:05 - Medications Medications: Current Medications Lactulose (Enulose) 20 gm PO TID [facility] Last Admin: 09/21/18 17:10 Dose: 20 gm Pantoprazole Sodium (Protonix Ec Tab) 40 mg PO ACB [facility] - Labs Labs: 09/21/18 06:15 09/21/18 06:15 PT 21.2 SECONDS (9.4-12.5) H 09/19/18 19:26 INR 1.84 09/19/18 19:26 APTT 44.6 Seconds (25.1-36.5) H 09/19/18 19:26
--- NOTE | 2018-09-21 13:49 | MRI ---
Date of service: 09/20/2018 PROCEDURE: Magnetic Resonance Cholangiopancreatography HISTORY: COMPARISON: None available. TECHNIQUE: Multiplanar, multisequence MR images of the abdomen were obtained, including heavily T2 weighted MRCP images of the biliary system. Rotating maximum intensity projection images of the biliary system were generated. FINDINGS: MRCP: The common bile duct is of a normal caliber. No evidence of choledocholithiasis. No intrahepatic biliary ductal dilatation. LIVER: Unremarkable. GALLBLADDER: Multiple gallstones layered in the gallbladder. No evidence of common duct stone SPLEEN: There is splenomegaly. The spleen measures 19 cm in length by 15 cm AP and 6.6 cm wide. PANCREAS: Unremarkable. ADRENALS: Unremarkable. KIDNEYS: Unremarkable. AORTA: No aneurysm. ASCITES: None. OTHER FINDINGS: None. IMPRESSION: Multiple gallstones layered in the gallbladder. No evidence of common duct stone
--- NOTE | 2018-09-21 14:09 | CP.PCM.PN ---
<Chavez Lindquist - Last Filed: 09/21/18 16:44> Subjective - Date & Time of Evaluation Date of Evaluation: 09/21/18 Time of Evaluation: 10:00 - Subjective Subjective: Chavez Lindquist PGY1 Medicine Progress Note Of note, patient has another EMR chart with name Juanjose Rivera and . Patient seen and examined at bedside this morning. No acute events reported overnight. States he had 6 bowel movements over the last 24 hours. Also admits to orange/red urine. Tolerating diet well. No complaints offered today. Denies headaches, confusion, nausea, vomiting, fevers, chills, abdominal pain, urinary complaints, numbness, tingling and swelling. Objective - Vital Signs/Intake and Output Vital Signs (last 24 hours): Temp Pulse Resp BP Pulse Ox 98.4 F 72 20 122/83 98 09/21/18 06:00 09/21/18 06:00 09/21/18 06:00 09/21/18 06:00 09/21/18 06:00 Intake and Output: 09/21/18 09/21/18 06:59 18:59 Intake Total 580 Balance 580 - Medications Medications: Current Medications Lactulose (Enulose) 20 gm PO TID [facility] Last Admin: 09/21/18 09:04 Dose: 20 gm Pantoprazole Sodium (Protonix Ec Tab) 40 mg PO ACB [facility] - Labs Labs: 09/21/18 06:15 09/21/18 06:15 PT 21.2 SECONDS (9.4-12.5) H 09/19/18 19:26 INR 1.84 09/19/18 19:26 APTT 44.6 Seconds (25.1-36.5) H 09/19/18 19:26 - Constitutional Appears: No Acute Distress - Head Exam Head Exam: ATRAUMATIC, NORMAL INSPECTION - Eye Exam Eye Exam: EOMI Pupil Exam: PERRL - ENT Exam ENT Exam: Mucous Membranes Moist - Respiratory Exam Respiratory Exam: Clear to Ausculation Bilateral. absent: Accessory Muscle Use, Respiratory Distress - Cardiovascular Exam Cardiovascular Exam: REGULAR RHYTHM, +S1, +S2 - GI/Abdominal Exam GI & Abdominal Exam: Soft, Normal Bowel Sounds. absent: Guarding, Tenderness Additional comments: superficial veins appreciated near umbilical region - Neurological Exam Neurological Exam: Alert, Awake, Oriented x3 Additional comments: no asterixis noted - Skin Skin Exam: Normal Color, Warm Assessment and Plan - Assessment and Plan (Free Text) Assessment: This is a 45 year old male with a PMH of cirrhosis due to alcohol, complains of b/l flank pain and upper abdominal pain which started at 8 AM, associated with fever, nausea, vomiting and 3 episodes of diarrhea. Plan: Decompensated liver cirrhosis -history of cirrhosis, portal HTN, Varices -MELD today is 21 from 23 yesterday (Tbili 6.1 today from 10.6 yesterday) -concern for alcoholic hepatitis -Duplex pending for portal system thrombosis -hepatitis panel unremarkable -ammonia level not needed at this time, patient having regular bowel movements -unlikely SBP -no blood cx after 24 hours, urine cx shows no growth -lactulose 20mg TID, protonix 40mg -MRCP shows multiple gallstones layered in the gallbladder, no evidence of CBD stone -CT abd/pelvis shows cirrhosis of liver with portal hypertension, severe spleno megaly and perisplenic varices, cholelithiasis, nonobstructing renal stones -abdominal US shows cirrhosis of the liver, splenomegaly, perisplenic varices, cholelithiasis -GI consulted, Dr. Ahumada -Surgery consulted, Dr Eng -Palliative care on consult -Patient will benefit from liver transplant, to follow up with [facility] Hematuria -nonobstructing stone seen on CT -urine strain -urology on consult, Dr. Spencer Anemia -Hgb 10.8 from 11.2 yesterday -MCV WNL, Hg stable from prior visits Thrombocytopenia -s/p 1 unit platelets on 09/20 -platelets today 48 from 36 yesterday -heme/onc on consult, Dr Paul PPX with protonix and SCD Patient seen and discussed with attending, Dr. Rico <Rasta Rico - Last Filed: 09/21/18 18:32> Objective - Vital Signs/Intake and Output Vital Signs (last 24 hours): Temp Pulse Resp BP Pulse Ox 98.4 F 66 20 118/69 97 09/21/18 17:05 09/21/18 17:05 09/21/18 17:05 09/21/18 17:05 09/21/18 17:05 Intake and Output: 09/21/18 09/21/18 06:59 18:59 Intake Total 580 Balance 580 - Medications Medications: Current Medications Lactulose (Enulose) 20 gm PO TID [facility] Last Admin: 09/21/18 17:10 Dose: 20 gm Pantoprazole Sodium (Protonix Ec Tab) 40 mg PO ACB [facility] - Labs Labs: 09/21/18 06:15 09/21/18 06:15 PT 21.2 SECONDS (9.4-12.5) H 09/19/18 19:26 INR 1.84 09/19/18 19:26 APTT 44.6 Seconds (25.1-36.5) H 09/19/18 19:26 Attending/Attestation - Attestation I have personally seen and examined this patient.: Yes I have fully participated in the care of the patient.: Yes I have reviewed all pertinent clinical information, including history, physical exam and plan: Yes Notes (Text): Liver cirrhosis without ascites Pancytopenia Hematuria GI on board, will continue to monitor H/H closely. c/w lactulose, goal is to have at least 3 loose stools to prevent metabolic encephalopathy. Will DC rocephin prophylaxis as there is no evidence of SBP or variceal bleed. Urology consulted for hematuria, will f/u recommendations Pt receive 1 bag of platelet. Monitor CBC. Hematology consulted. 09/21/18 18:25
[2018-09-21 17:05] VITALS: O2SAT 97
--- NOTE | 2018-09-21 19:48 | CP.PCM.CON ---
History of Present Illness - History of Present Illness History of Present Illness: 43 year old male with a history of alcoholic cirrhosis, admitted with abdominal pain, found to have pancytopenia, splenomegaly, and coagulopathy. He notes to worsening abdominal/flank pain and blood in the urine. He notes to having k idney stones in the past. Of note, he does not drink anymore and is hopeful for a liver transplant. Past medical history: alcoholic cirrhosis Past surgical history: Appendectomy Family history: Denies hematologic and oncologic problems Social history: Former alcohol abuse Allergies: NKA Review of systems: All remaining review of systems including HEENT, cardiovascular, respiratory, gastrointestinal, genitourinary, musculoskeletal, dermatologic, neurologic, and psychiatric are negative unless mentioned in the HPI. Past Patient History - Past Social History Smoking Status: Unknown If Ever Smoked - CARDIAC Hx Cardiac Disorders: Yes Hx Peripheral Edema: Yes (+1 ankle edema) - PULMONARY Hx Respiratory Disorders: No - NEUROLOGICAL Hx Neurological Disorder: Yes (headaches) - HEENT Hx HEENT Problems: Yes (eyeglasses) - RENAL Hx Chronic Kidney Disease: No - ENDOCRINE/METABOLIC Hx Endocrine Disorders: No - HEMATOLOGICAL/ONCOLOGICAL Hx Blood Disorders: Yes Hx Cirrhosis: Yes (dx 5 yrs ago/quit drinking vodka daily 5 yrs ago) - INTEGUMENTARY Hx Dermatological Problems: No - MUSCULOSKELETAL/RHEUMATOLOGICAL Hx Falls: No - GASTROINTESTINAL Hx Liver Failure: Yes (Liver cirrhosis) - GENITOURINARY/GYNECOLOGICAL Hx Genitourinary Disorders: No - PSYCHIATRIC Hx Psychophysiologic Disorder: No Hx Substance Use: No Other/Comment: pt quit drinking vodka daily 5 yrs ago due to dx of cirrhosis - SURGICAL HISTORY Hx Appendectomy: Yes - ANESTHESIA Hx Anesthesia: Yes Meds Allergies/Adverse Reactions: Allergies Allergy/AdvReac Type Severity Reaction Status Date / Time No Known Allergies Allergy Verified 09/19/18 19:01 - Medications Medications: Current Medications Lactulose (Enulose) 20 gm PO TID [facility] Last Admin: 09/21/18 17:10 Dose: 20 gm Pantoprazole Sodium (Protonix Ec Tab) 40 mg PO ACB [facility] Physical Exam - Head Exam Head Exam: ATRAUMATIC - Eye Exam Eye Exam: Normal appearance - ENT Exam ENT Exam: Mucous Membranes Dry - Respiratory Exam Respiratory Exam: NORMAL BREATHING PATTERN - Cardiovascular Exam Cardiovascular Exam: +S1, +S2 - GI/Abdominal Exam GI & Abdominal Exam: Normal Bowel Sounds - Extremities Exam Extremities exam: Positive for: normal inspection - Neurological Exam Neurological exam: Oriented x3 - Psychiatric Exam Psychiatric exam: Normal Affect, Normal Mood - Skin Skin Exam: Warm Results - Vital Signs Recent Vital Signs: Last Vital Signs Temp 98.4 F 09/21/18 17:05 Pulse 66 09/21/18 17:05 Resp 20 09/21/18 17:05 BP 118/69 09/21/18 17:05 Pulse Ox 97 09/21/18 17:05 - Labs Result Diagrams: 09/21/18 06:15 09/21/18 06:15 Labs: Laboratory Results - last 24 hr 09/21/18 09/21/18 09/21/18 06:15 06:15 13:30 WBC 2.1 L RBC 3.27 L Hgb 10.8 L Hct 31.3 L MCV 95.7 MCH 33.0 MCHC 34.5 RDW 16.1 H Plt Count 48 L* Manual Plt Count 56 L MPV 10.9 Gran % 32.3 L Lymph % (Auto) 50.7 H [place] % (Auto) 9.7 H Eos % (Auto) 6.8 H Baso % (Auto) 0.5 Gran # 0.67 L Lymph # (Auto) 1.1 L [place] # (Auto) 0.2 Eos # (Auto) 0.1 Baso # (Auto) 0.01 Sodium 139 Potassium 4.1 Chloride 109 H Carbon Dioxide 26 Anion Gap 9 L BUN 9 Creatinine 0.5 L Est GFR ( Amer) > 60 Est GFR (Non-Af Amer) > 60 Random Glucose 89 Calcium 8.5 Total Bilirubin 6.1 H Direct Bilirubin 1.0 H AST 90 H ALT 46 Alkaline Phosphatase 150 H Total Protein 5.7 L Albumin 2.4 L Globulin 3.3 Albumin/Globulin Ratio 0.7 L Assessment & Plan (1) Pancytopenia Assessment and Plan: secondary to liver disease, splenic sequestration thrombopoietin dysregulation check retic count, b12, folate, ferritin plt transfusion for goal plt > 50,000 if requires paracentesis Status: Acute (2) Splenomegaly Assessment and Plan: secondary to portal HTN from liver cirrhosis Thank you for this interesting consult. Status: Acute
--- NOTE | 2018-09-21 20:55 | CON ---
DATE: 09/21/2018 GENITOURINARY CONSULTATION CHIEF COMPLAINT: Flank pain, fever, nausea, vomiting and diarrhea. HISTORY OF PRESENT ILLNESS This is a 43-year-old male with a history of alcoholic cirrhosis who was admitted to [facility] complaining of low back pain and left upper abdominal pain along with fever, nausea, vomiting and diarrhea. The patient also reportedly had dark-colored urine and a consultation was requested. The patient reports he is voiding well. He states his urine has been dark on and off and brownish to reddish in color for about a year. He reports no dysuria, frequency or urgency and reports voiding with a good stream. He reports his back pain is in his low back on the right and left side. There are no aggravating or alleviating factors. He does report left upper quadrant abdominal pain as well. He has no current fever or chills, but feels that he did have prior to admission. PAST MEDICAL HISTORY: Significant for cirrhosis, alcoholism. PAST SURGICAL HISTORY: Appendectomy. MEDICATIONS: Include Enulose, Protonix, and Rocephin. ALLERGIES: NO KNOWN DRUG ALLERGIES. FAMILY HISTORY: Noncontributory towards this admission. SOCIAL HISTORY: Positive for EtOH abuse in the past. Denies smoking. PHYSICAL EXAMINATION: GENERAL: The patient is awake and alert in bed. He is in no acute distress. VITAL SIGNS: He has been afebrile, temperature of 98.4, BP 122/83, respirations 20, and pulse of 72. NECK: Supple. There is no adenopathy noted. CHEST: Reveals normal inspiratory effort. CARDIAC: Shows positive S1 and S2. ABDOMEN: Soft and nontender. There is no rebound or guarding. There is no CVA tenderness. His tenderness appears to be in his lower back. His spleen does appear to be palpable. I could not palpate a liver edge. GENITOURINARY: Phallus is normal. Scrotum is normal. Testes bilaterally descended, nontender, no masses. Epididymis are normal. LABORATORY DATA: WBC count was 1.9 yesterday up to 2.1 today, hemoglobin 10.8, and platelet count of 48. Creatinine normal at 0.5 with a GFR greater than 60, bilirubin 10.6 yesterday down to 6.1. Elevated liver function tests. On radiologic exam, the patient had an abdominopelvic CT done yesterday, which showed both kidneys were normal in size. There were stable parapelvic cysts and a simple cyst in the interpolar region of the left kidney. Again seen are small nonobstructing stones in the right kidney and a small nonobstructing stone in the left kidney. Bladder was well distended and normal in appearance. Prostate gland was normal in size. Urinalysis showed 1-3 rbc, 0-2 wbc, positive for bilirubin, negative for nitrites. Blood culture showed no growth after 24 hours. Urine culture also with no growth. IMPRESSION AND PLAN: This is a 43-year-old male with alcoholic cirrhosis, massive splenomegaly, the patient does not have renal colic. He does have a few small nonobstructing stones, these are not the source of his back pain. More likely, the back pain is caused by the massive splenomegaly, which would also be the source of his left upper quadrant abdominal pain. The patient does not have hematuria on microscopic exam. Most likely, the reddish or brownish colored urine is due to bilirubinuria as the patient does have cirrhosis and an elevated bilirubin levels in the urine. The patient does not require any acute urologic intervention at this time. He does need treatment of his massive splenomegaly and hematologic abnormalities, which are due to the splenomegaly and cirrhosis. He likely has portal hypertension and likely varices and should have a surgical consultation as well as medical treatment of these underlying comorbidities. The patient should follow up with the urologist electively as an outpatient after discharge to monitor the stones; however, these are not causing any clinical symptoms at this time and the patient has other significant issues, which need to be treated. Thank you for allowing me to participate in the care of this patient. Andreas Spencer MD
[2018-09-22 06:48] LABS: EOS # 0.2 (0.0-0.7); GRAN # 1.02 (1.4-6.5); GRAN % 38.5 % (50.0-68.0); HEMOGLOBIN 11.7 g/dL (14.0-18.0); LYMPH # 1.2 (1.2-3.4); LYMPH % 46.4 % (22.0-35.0); MEAN CELL VOLUME 94.4 fl (80.0-105.0); MEAN CORPUSCULAR HEMOGLOBIN 32.7 pg (25.0-35.0); MEAN CORPUSCULAR HGB CONC 34.6 g/dl (31.0-37.0); MEAN PLATELET VOLUME 10.5 fl (7.0-11.0); MONO # 0.2 (0.1-0.6); MONO % 9.1 % (1.0-6.0); RBC 3.58 10^6/uL (3.5-6.1); RED CELL DISTRIBUTION WIDTH 15.9 % (11.5-14.5); WHITE BLOOD COUNT 2.7 10^3/uL (4.5-11.0)
[2018-09-22 06:49] VITALS: BP 106/68; PULSE 71; TEMP 98.2
[2018-09-22 07:08] LABS: ALB/GLOB RATIO 0.8 (1.1-1.8); ALBUMIN 2.7 g/dL (3.0-4.8); ALT/SGPT 42 U/L (7-56); AST/SGOT 79 U/L (17-59); BLOOD UREA NITROGEN 9 mg/dL (7-21); CALCIUM 8.9 mg/dL (8.4-10.5); GFR NON-AFRICAN AMERICAN > 60
[2018-09-22] MEDS ORDERED: Pantoprazole 40 mg EC Tab PO SCH (07:30)
--- NOTE | 2018-09-22 08:51 | CP.PCM.PN ---
<Earline Driver - Last Filed: 09/22/18 08:47> Subjective - Date & Time of Evaluation Date of Evaluation: 09/22/18 Time of Evaluation: 08:47 - Subjective Subjective: astroenterology Fellow/PGY6 Progress Note Patient denies abdominal pain. Notes urination without hematuria. Tolerating diet. Admits to one bowel movement yesterday. A 12-point review of systems negative except for as above. Objective - Vital Signs/Intake and Output Vital Signs (last 24 hours): Temp Pulse Resp BP Pulse Ox 98.2 F 71 20 106/68 97 09/22/18 06:00 09/22/18 06:00 09/22/18 06:00 09/22/18 06:00 09/22/18 06:00 Intake and Output: 09/22/18 09/22/18 06:59 18:59 Intake Total 420 Balance 420 - Medications Medications: Current Medications Lactulose (Enulose) 20 gm PO TID [facility] Last Admin: 09/21/18 17:10 Dose: 20 gm Pantoprazole Sodium (Protonix Ec Tab) 40 mg PO ACB [facility] - Labs Labs: 09/22/18 06:00 09/22/18 06:00 PT 21.2 SECONDS (9.4-12.5) H 09/19/18 19:26 INR 1.84 09/19/18 19:26 APTT 44.6 Seconds (25.1-36.5) H 09/19/18 19:26 - Constitutional Appears: Non-toxic, No Acute Distress - Head Exam Head Exam: ATRAUMATIC, NORMOCEPHALIC - Eye Exam Eye Exam: EOMI, PERRL. absent: Scleral icterus Pupil Exam: PERRL. absent: Miosis, Mydriatic - ENT Exam ENT Exam: Mucous Membranes Moist, Normal Oropharynx - Neck Exam Neck Exam: Full ROM, Normal Inspection - Respiratory Exam Respiratory Exam: Clear to Ausculation Bilateral. absent: Rales, Rhonchi, Wheezes - Cardiovascular Exam Cardiovascular Exam: RRR, +S1, +S2. absent: Gallop, Rubs - GI/Abdominal Exam GI & Abdominal Exam: Soft, Normal Bowel Sounds. absent: Distended, Firm, Guarding, Rigid, Tenderness, Organomegaly, Rebound - Extremities Exam Extremities Exam: Normal Inspection. absent: Pedal Edema - Neurological Exam Neurological Exam: Alert, Awake Additional comments: no asterixis - Psychiatric Exam Psychiatric exam: Normal Affect, Normal Mood - Skin Skin Exam: Dry, Intact, Normal Color, Warm Assessment and Plan - Assessment and Plan (Free Text) Assessment: 43 year old male with PMH of Depression, suicidal ideation (as recent as 02/2018), decompensated alcohol cirrhosis 2/2 hepatic encephalopathy (endorsed sobriety, last ETOH use documented as 02/2018) presenting with bilateral flank pain, hematuria, and vomiting. GI consultation for cirrhosis management. Prior EGD 01/2016 showed LAGB esophagitis, esophageal candidiasis, distal esophageal diverticulum, portal hypertensive gastropathy, and duodenal erosions. Prior colonoscopy 03/2016 showed internal hemorrhoids. Plan: -09/19 MELD 23, CTP C, DF 51.2 -PT/INR ordered -LFTs improving -concern for recidivism, unconjugated hyperbilirubinemia -pending urine ethyl glucoronide -MRCP- cholelithiasis, no sign of choledocholithiasis -pending Duplex U/S -continue Lactulose, titrate to 2-3 BMs per day -2g low Na diet, encourage adequate protein intake -patient will benefit from tertiary care evaluation for OLT -will follow clinical course <Dieudonne Ahumada V - Last Filed: 09/23/18 00:04> Objective - Vital Signs/Intake and Output Vital Signs (last 24 hours): Temp Pulse Resp BP Pulse Ox 98.2 F 71 20 106/68 97 09/22/18 06:00 09/22/18 06:00 09/22/18 06:00 09/22/18 06:00 09/22/18 06:00 - Labs Labs: 09/22/18 06:00 09/22/18 06:00 PT 21.8 SECONDS (9.4-12.5) H 09/22/18 09:15 INR 1.87 09/22/18 09:15 APTT 44.6 Seconds (25.1-36.5) H 09/19/18 19:26 Attending/Attestation - Attestation I have personally seen and examined this patient.: Yes I have fully participated in the care of the patient.: Yes I have reviewed all pertinent clinical information, including history, physical exam and plan: Yes Notes (Text): This is an addendum to GI progress report dictated by the GI Fellow.The patient was seen and examined earlier. Medical records, lab studies, imagings were reviewed. Last 24 hours events reviewed. Agreed with the above treatment plan as outlined in GI Fellow 's notes with the addition of the following 09/23/18 00:03
--- NOTE | 2018-09-22 09:22 | US ---
Date of service: 09/21/2018 HISTORY: pancytopenia, elev LFTs,eval for thrombosis COMPARISON: None. TECHNIQUE: Sonographic evaluation of the abdomen. FINDINGS: LIVER: Normal echogenicity of the liver parenchyma. No interval change in headache parenchyma is appreciated. Spectral Doppler analysis of the portal vein reveals reversed blood flow once again normal a patent arterial blood flow appreciated as well as hepatic vein blood flow. Normal directional blood flow splenic vein. AORTA: No aneurysmal dilatation. IVC: Unremarkable. OTHER FINDINGS: None. IMPRESSION: Duplex Doppler ultrasonography reveals normal hepatic and splenic venous as well as hepatic arterial blood flow however there is reversed portal venous blood flow once again without definitive pattern of venous thrombosis appreciable at this time. Examination was limited to spectral Doppler analysis of portal vascular anatomy. Imaging of the liver is otherwise unremarkable.
[2018-09-22 10:07] LABS: INR 1.87; PROTHROMBIN TIME 21.8 SECONDS (9.4-12.5)
[2018-09-22 13:07] LABS: FOLATE 15.5 ng/mL
--- NOTE | 2018-09-22 14:12 | CP.PCM.DIS ---
<Chavez Lindquist - Last Filed: 09/22/18 15:11> Provider - Provider Date of Admission: 09/21/18 08:43 Attending physician: Miriam Rasheed DO Consults: Urology Surgery GI Heme/onc Palliative care Time Spent in preparation of Discharge (in minutes): 35 Hospital Course - Lab Results Lab Results: Micro Results 09/19/18 19:56 Blood Blood Culture - Preliminary NO GROWTH AFTER 48 HOURS 09/19/18 19:26 Blood Blood Culture - Preliminary NO GROWTH AFTER 48 HOURS 09/19/18 20:00 Urine Urine Culture - Final No Growth (<1,000 CFU/ML) Most Recent Lab Values WBC 2.7 10^3/uL (4.5-11.0) L D 09/22/18 06:00 RBC 3.58 10^6/uL (3.5-6.1) 09/22/18 06:00 Hgb 11.7 g/dL (14.0-18.0) L 09/22/18 06:00 Hct 33.8 % (42.0-52.0) L 09/22/18 06:00 MCV 94.4 fl (80.0-105.0) 09/22/18 06:00 MCH 32.7 pg (25.0-35.0) 09/22/18 06:00 MCHC 34.6 g/dl (31.0-37.0) 09/22/18 06:00 RDW 15.9 % (11.5-14.5) H 09/22/18 06:00 Plt Count 53 10^3/uL (120.0-450.0) L 09/22/18 06:00 Manual Plt Count 56 K/mm3 (120-450) L 09/21/18 06:15 MPV 10.5 fl (7.0-11.0) 09/22/18 06:00 Gran % 38.5 % (50.0-68.0) L 09/22/18 06:00 Lymph % (Auto) 46.4 % (22.0-35.0) H 09/22/18 06:00 Harnett % (Auto) 9.1 % (1.0-6.0) H 09/22/18 06:00 Eos % (Auto) 6.0 % (1.5-5.0) H 09/22/18 06:00 Baso % (Auto) 0.0 % (0.0-3.0) 09/22/18 06:00 Gran # 1.02 (1.4-6.5) L 09/22/18 06:00 Lymph # (Auto) 1.2 (1.2-3.4) 09/22/18 06:00 Harnett # (Auto) 0.2 (0.1-0.6) 09/22/18 06:00 Eos # (Auto) 0.2 (0.0-0.7) 09/22/18 06:00 Baso # (Auto) 0.00 K/mm3 (0.0-2.0) 09/22/18 06:00 Neutrophils % (Manual) 22 % (50.0-70.0) L 09/20/18 06:00 Lymphocytes % (Manual) 53 % (22.0-35.0) H 09/20/18 06:00 Atypical Lymphs % 4 % (0.0-0.0) H 09/20/18 06:00 Monocytes % (Manual) 12 % (1.0-6.0) H 09/20/18 06:00 Eosinophils % (Manual) 8 % (0.0-3.0) H 09/20/18 06:00 Platelet Evaluation Low (NORMAL) 09/20/18 06:00 Polychromasia Slight 09/20/18 06:00 Hypochromasia 1+ 09/20/18 06:00 Anisocytosis (manual) 1+ 09/20/18 06:00 Tear Drop Cells Slight 09/20/18 06:00 Ovalocytes Slight 09/20/18 06:00 Stomatocytes Slight 09/20/18 06:00 Retic Count 1.82 % (0.5-1.5) H 09/22/18 06:00 PT 21.8 SECONDS (9.4-12.5) H 09/22/18 09:15 INR 1.87 09/22/18 09:15 APTT 44.6 Seconds (25.1-36.5) H 09/19/18 19:26 pO2 61 mm/Hg (30-55) H 09/19/18 19:52 VBG pH 7.35 (7.32-7.43) 09/19/18 19:52 VBG pCO2 49.0 (40-60) 09/19/18 19:52 VBG HCO3 27.1 mmol/l (21-28) 09/19/18 19:52 VBG Total CO2 28.6 mmol.L (22-28) H 09/19/18 19:52 VBG O2 Sat (Calc) 94.1 % (40-65) H 09/19/18 19:52 VBG Base Excess 0.8 mmol/L (0.0-2.0) 09/19/18 19:52 VBG Potassium 4.1 mmol/L (3.6-5.2) 09/19/18 19:52 Sodium 139.0 mmol/L (132-148) 09/19/18 19:52 Chloride 107.0 mmol/L (98-107) 09/19/18 19:52 Glucose 94 mg/dl (75-110) 09/19/18 19:52 Lactate 1.5 mmol/L (0.7-2.1) 09/19/18 19:52 FiO2 21.0 % 09/19/18 19:52 Sodium 139 mmol/L (132-148) 09/22/18 06:00 Potassium 4.0 mmol/L (3.6-5.0) 09/22/18 06:00 Chloride 106 mmol/L (98-107) 09/22/18 06:00 Carbon Dioxide 26 mmol/L (21-33) 09/22/18 06:00 Anion Gap 11 (10-20) 09/22/18 06:00 BUN 9 mg/dL (7-21) 09/22/18 06:00 Creatinine 0.6 mg/dl (0.8-1.5) L 09/22/18 06:00 Est GFR ( Amer) > 60 09/22/18 06:00 Est GFR (Non-Af Amer) > 60 09/22/18 06:00 Random Glucose 93 mg/dL (70-110) 09/22/18 06:00 Hemoglobin A1c 4.1 % (4.2-6.5) L 09/20/18 06:00 Calcium 8.9 mg/dL (8.4-10.5) 09/22/18 06:00 Ferritin 176.0 ng/mL 09/22/18 06:00 Total Bilirubin 4.4 mg/dL (0.2-1.3) H 09/22/18 06:00 Direct Bilirubin 1.0 mg/dL (0.0-0.4) H 09/21/18 13:30 AST 79 U/L (17-59) H 09/22/18 06:00 ALT 42 U/L (7-56) 09/22/18 06:00 Alkaline Phosphatase 163 U/L (38-126) H 09/22/18 06:00 Ammonia 48 umol/L (9-33) H 09/20/18 06:00 Total Protein 6.1 g/dL (5.8-8.3) 09/22/18 06:00 Albumin 2.7 g/dL (3.0-4.8) L 09/22/18 06:00 Globulin 3.4 gm/dL 09/22/18 06:00 Albumin/Globulin Ratio 0.8 (1.1-1.8) L 09/22/18 06:00 Lipase 71 U/L (23-300) 09/19/18 19:26 Alpha Fetoprotein 3.7 ng/mL (0.0-7.5) 09/20/18 08:30 Vitamin B12 577 pg/mL (239-931) 09/22/18 06:00 Folate 15.5 ng/mL 09/22/18 06:00 Venous Blood Potassium 4.1 mmol/L (3.6-5.2) 09/19/18 19:52 Urine Color Dark yellow (YELLOW) 09/19/18 20:00 Urine Appearance Clear (CLEAR) 09/19/18 20:00 Urine pH 7.5 (4.7-8.0) 09/19/18 20:00 Ur Specific [place] 1.015 (1.005-1.035) 09/19/18 20:00 Urine Protein Negative mg/dL (<30 mg/dL) 09/19/18 20:00 Urine Glucose (UA) Negative mg/dL (NEGATIVE) 09/19/18 20:00 Urine Ketones Negative mg/dL (NEGATIVE) 09/19/18 20:00 Urine Blood Small (NEGATIVE) H 09/19/18 20:00 Urine Nitrate Negative (NEGATIVE) 09/19/18 20:00 Urine Bilirubin Small (NEGATIVE) H 09/19/18 20:00 Urine Urobilinogen 1.0 E.U./dL (<1 E.U./dL) H 09/19/18 20:00 Ur Leukocyte Esterase Trace Jennifer/uL (NEGATIVE) H 09/19/18 20:00 Urine RBC 1 - 3 /hpf (0-2) 09/19/18 20:00 Urine WBC 0 - 2 /hpf (0-6) 09/19/18 20:00 Ur Epithelial Cells 0 - 2 /hpf (0-5) 09/19/18 20:00 Alcohol, Quantitative < 10 mg/dL (0-10) 09/20/18 08:30 Hepatitis A IgM Ab Negative (NEGATIVE) 09/20/18 06:00 Hep Bs Antigen Negative (NEGATIVE) 09/20/18 06:00 Hep B Core IgM Ab Negative (NEGATIVE) 09/20/18 06:00 Hepatitis C Antibody Negative (NEGATIVE) 09/20/18 06:00 Influenza Typ A,B (EIA) Negative for flu a/b (NEGATIVE) 09/19/18 19:52 Blood Type O POSITIVE 09/20/18 15:00 Blood Type Confirm O POSITIVE 09/20/18 15:37 Antibody Screen Negative 09/20/18 15:00 Crossmatch See Detail 09/20/18 15:00 BBK History Checked No verified bt 09/20/18 15:00 - Hospital Course Hospital Course: Upon admission, 45 year old male with a 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 He has been taking lactulose for the past 5 years, and states 3 episodes of diarrhea a day is normal for him. He states his abdomen has been enlarging and he has been gaining weight recently over the past 2 months. Pt denies dysuria, but reports red colored urine for the past 4 months. Pt reports headache and subjective fever. Pt states that his abdominal pain has resolved at the time of the interview. Pt states he has had a kidney stone in the past which felt similar to current symptoms. During admission, patient was evaluated for decompensated alcoholic liver cir rhosis and hematuria. patient initially started on prophylaxis antibiotics but discontinued due to low suspicion of SBP and varices. MELD score noted to be 23 on admission improved to 19 two days later, T.Bili 10.6, and unremarkable hepatitis panel. Concern for alcohol recedivism with AST/ALT of 110/50. Patient received one unit of platelets on 09/20 and platelets improved from 36 to 48. MRCP shows multiple gallstones layered in the gallbladder, no evidence of CBD stone. CT abd/pelvis shows cirrhosis of liver with portal hypertension, severe splenomegaly and perisplenic varices, cholelithiasis, nonobstructing renal stones. Abdominal US shows cirrhosis of the liver, splenomegaly, perisplenic varices, cholelithiasis. Abdomen duplex on 09/21/18 showed normal hepatic and splenic venous as well as hepatic arterial blood flow with no definitive pattern of venous thrombosis appreciable. Patient noted to be pancytopenic, likley 2/2 liver cirrhosis. Patient received lactulose with 4-5 BM per day to prevent metabolic encephalopathy. Blood culture is negative after 48 hours and urine culture is negative. Per urology, nonobstructing stones not the source of back pain which is likely from splenomegaly and hematuria likely 2/2 from bilibruniuria, no acute urology needed at this time. Patient to follow up with urologist as outpatient, referral given. Patient to follow up with gmat instructor and table runner as outpatient, referral given. We contacted [facility] to schedule appointment for lavelle and [facility] requested patient's medical file which was faxed to [facility] on 09/22/18. [facility] liver transplant unit will call patient once clinic accepts patient. Patient agreed to follow up with [facility], phone number given to patient. Patient also agreed not to drink alcohol. Patient states that he was at a hospital recently and he did not drink alcohol. Patient states he remains sober after hospital discharge. Discharge instructions was given with Divehi translation with medical staff. Patient verbalized understanding and agreement. Patient's sister, Tawanna who is listed as the next of kin was contacted by phone at [phone] to explain patient medical status, inquire about drinking histo ry, and stress the importance of [facility] followup and primary care doctor follow up. Two voicemails were left to Tawanna, but call back has yet to be received from sister. Discharge Exam - Additional Findings Additional findings: - Constitutional Appears: No Acute Distress - Head Exam Head Exam: ATRAUMATIC, NORMAL INSPECTION - Eye Exam Eye Exam: EOMI Pupil Exam: PERRL - ENT Exam ENT Exam: Mucous Membranes Moist - Respiratory Exam Respiratory Exam: Clear to Ausculation Bilateral. absent: Accessory Muscle Use, Respiratory Distress - Cardiovascular Exam Cardiovascular Exam: REGULAR RHYTHM, +S1, +S2 - GI/Abdominal Exam GI & Abdominal Exam: Soft, Normal Bowel Sounds. absent: Guarding, Tenderness Additional comments: superficial veins appreciated near umbilical region - Neurological Exam Neurological Exam: Alert, Awake, Oriented x3 Additional comments: no asterixis appreciated Discharge Plan - Discharge Medications Prescriptions: RX: Lactulose 20 gm PO BID 30 Days #60 solution - Follow Up Plan Condition: STABLE Disposition: HOME/ ROUTINE Additional Instructions: Follow up with [facility] in [facility] for evaluation of your cirrhosis, liver transplant, and to begin the process of getting on the liver transplant list. [facility] liver transplant clinic in [place], [place]: [phone]. Our hospital has sent your medical record to [facility] liver transplant clinic. The liver transplant clinic will review your files and call you back at [phone] Please also follow up with your primary care doctor at [facility] within 3-5 days. You will need repeat blood work to monitor your liver functions. You are scheduled for an appointment at 1:30pm on 10/02/18 at the [facility] downstairs in the hospital. Please arrive at least 15 minutes prior to appointment time. Please call the clinic number at [phone] to confirm your appointment and establish abdullahi care by completing any necessary paperwork. As per our discussion, please do not drink alcohol. Please follow up with your urologist, Dr. Spencer within 5-7 days of discharge. Please follow up with your gmat instructor, Dr. Ahumada within 5-7 days of discharge. Should you develop symptoms such as but not limited to severe headache, shortness of breath, chest pain, confusion, increased abdominal pain, vomiting or fevers please proceed immediately to the nearest Emergency Department Referrals: at [facility] [Outside] Shai Paul MD [Staff Provider] - Andreas Spencer MD [Staff Provider] - Dieudonne Ahumada MD [Medical Doctor] - <Rasta Rico - Last Filed: 09/22/18 15:27> Provider - Provider Date of Admission: 09/21/18 08:43 Attending physician: Miriam Rasheed, DO Hospital Course - Lab Results Lab Results: Micro Results 09/19/18 19:56 Blood Blood Culture - Preliminary NO GROWTH AFTER 48 HOURS 09/19/18 19:26 Blood Blood Culture - Preliminary NO GROWTH AFTER 48 HOURS 09/19/18 20:00 Urine Urine Culture - Final No Growth (<1,000 CFU/ML) Most Recent Lab Values WBC 2.7 10^3/uL (4.5-11.0) L D 09/22/18 06:00 RBC 3.58 10^6/uL (3.5-6.1) 09/22/18 06:00 Hgb 11.7 g/dL (14.0-18.0) L 09/22/18 06:00 Hct 33.8 % (42.0-52.0) L 09/22/18 06:00 MCV 94.4 fl (80.0-105.0) 09/22/18 06:00 MCH 32.7 pg (25.0-35.0) 09/22/18 06:00 MCHC 34.6 g/dl (31.0-37.0) 09/22/18 06:00 RDW 15.9 % (11.5-14.5) H 09/22/18 06:00 Plt Count 53 10^3/uL (120.0-450.0) L 09/22/18 06:00 Manual Plt Count 56 K/mm3 (120-450) L 09/21/18 06:15 MPV 10.5 fl (7.0-11.0) 09/22/18 06:00 Gran % 38.5 % (50.0-68.0) L 09/22/18 06:00 Lymph % (Auto) 46.4 % (22.0-35.0) H 09/22/18 06:00 Harnett % (Auto) 9.1 % (1.0-6.0) H 09/22/18 06:00 Eos % (Auto) 6.0 % (1.5-5.0) H 09/22/18 06:00 Baso % (Auto) 0.0 % (0.0-3.0) 09/22/18 06:00 Gran # 1.02 (1.4-6.5) L 09/22/18 06:00 Lymph # (Auto) 1.2 (1.2-3.4) 09/22/18 06:00 Harnett # (Auto) 0.2 (0.1-0.6) 09/22/18 06:00 Eos # (Auto) 0.2 (0.0-0.7) 09/22/18 06:00 Baso # (Auto) 0.00 K/mm3 (0.0-2.0) 09/22/18 06:00 Neutrophils % (Manual) 22 % (50.0-70.0) L 09/20/18 06:00 Lymphocytes % (Manual) 53 % (22.0-35.0) H 09/20/18 06:00 Atypical Lymphs % 4 % (0.0-0.0) H 09/20/18 06:00 Monocytes % (Manual) 12 % (1.0-6.0) H 09/20/18 06:00 Eosinophils % (Manual) 8 % (0.0-3.0) H 09/20/18 06:00 Platelet Evaluation Low (NORMAL) 09/20/18 06:00 Polychromasia Slight 09/20/18 06:00 Hypochromasia 1+ 09/20/18 06:00 Anisocytosis (manual) 1+ 09/20/18 06:00 Tear Drop Cells Slight 09/20/18 06:00 Ovalocytes Slight 09/20/18 06:00 Stomatocytes Slight 09/20/18 06:00 Retic Count 1.82 % (0.5-1.5) H 09/22/18 06:00 PT 21.8 SECONDS (9.4-12.5) H 09/22/18 09:15 INR 1.87 09/22/18 09:15 APTT 44.6 Seconds (25.1-36.5) H 09/19/18 19:26 pO2 61 mm/Hg (30-55) H 09/19/18 19:52 VBG pH 7.35 (7.32-7.43) 09/19/18 19:52 VBG pCO2 49.0 (40-60) 09/19/18 19:52 VBG HCO3 27.1 mmol/l (21-28) 09/19/18 19:52 VBG Total CO2 28.6 mmol.L (22-28) H 09/19/18 19:52 VBG O2 Sat (Calc) 94.1 % (40-65) H 09/19/18 19:52 VBG Base Excess 0.8 mmol/L (0.0-2.0) 09/19/18 19:52 VBG Potassium 4.1 mmol/L (3.6-5.2) 09/19/18 19:52 Sodium 139.0 mmol/L (132-148) 09/19/18 19:52 Chloride 107.0 mmol/L (98-107) 09/19/18 19:52 Glucose 94 mg/dl (75-110) 09/19/18 19:52 Lactate 1.5 mmol/L (0.7-2.1) 09/19/18 19:52 FiO2 21.0 % 09/19/18 19:52 Sodium 139 mmol/L (132-148) 09/22/18 06:00 Potassium 4.0 mmol/L (3.6-5.0) 09/22/18 06:00 Chloride 106 mmol/L (98-107) 09/22/18 06:00 Carbon Dioxide 26 mmol/L (21-33) 09/22/18 06:00 Anion Gap 11 (10-20) 09/22/18 06:00 BUN 9 mg/dL (7-21) 09/22/18 06:00 Creatinine 0.6 mg/dl (0.8-1.5) L 09/22/18 06:00 Est GFR ( Amer) > 60 09/22/18 06:00 Est GFR (Non-Af Amer) > 60 09/22/18 06:00 Random Glucose 93 mg/dL (70-110) 09/22/18 06:00 Hemoglobin A1c 4.1 % (4.2-6.5) L 09/20/18 06:00 Calcium 8.9 mg/dL (8.4-10.5) 09/22/18 06:00 Ferritin 176.0 ng/mL 09/22/18 06:00 Total Bilirubin 4.4 mg/dL (0.2-1.3) H 09/22/18 06:00 Direct Bilirubin 1.0 mg/dL (0.0-0.4) H 09/21/18 13:30 AST 79 U/L (17-59) H 09/22/18 06:00 ALT 42 U/L (7-56) 09/22/18 06:00 Alkaline Phosphatase 163 U/L (38-126) H 09/22/18 06:00 Ammonia 48 umol/L (9-33) H 09/20/18 06:00 Total Protein 6.1 g/dL (5.8-8.3) 09/22/18 06:00 Albumin 2.7 g/dL (3.0-4.8) L 09/22/18 06:00 Globulin 3.4 gm/dL 09/22/18 06:00 Albumin/Globulin Ratio 0.8 (1.1-1.8) L 09/22/18 06:00 Lipase 71 U/L (23-300) 09/19/18 19:26 Alpha Fetoprotein 3.7 ng/mL (0.0-7.5) 09/20/18 08:30 Vitamin B12 577 pg/mL (239-931) 09/22/18 06:00 Folate 15.5 ng/mL 09/22/18 06:00 Venous Blood Potassium 4.1 mmol/L (3.6-5.2) 09/19/18 19:52 Urine Color Dark yellow (YELLOW) 09/19/18 20:00 Urine Appearance Clear (CLEAR) 09/19/18 20:00 Urine pH 7.5 (4.7-8.0) 09/19/18 20:00 Ur Specific [place] 1.015 (1.005-1.035) 09/19/18 20:00 Urine Protein Negative mg/dL (<30 mg/dL) 09/19/18 20:00 Urine Glucose (UA) Negative mg/dL (NEGATIVE) 09/19/18 20:00 Urine Ketones Negative mg/dL (NEGATIVE) 09/19/18 20:00 Urine Blood Small (NEGATIVE) H 09/19/18 20:00 Urine Nitrate Negative (NEGATIVE) 09/19/18 20:00 Urine Bilirubin Small (NEGATIVE) H 09/19/18 20:00 Urine Urobilinogen 1.0 E.U./dL (<1 E.U./dL) H 09/19/18 20:00 Ur Leukocyte Esterase Trace Jennifer/uL (NEGATIVE) H 09/19/18 20:00 Urine RBC 1 - 3 /hpf (0-2) 09/19/18 20:00 Urine WBC 0 - 2 /hpf (0-6) 09/19/18 20:00 Ur Epithelial Cells 0 - 2 /hpf (0-5) 09/19/18 20:00 Alcohol, Quantitative < 10 mg/dL (0-10) 09/20/18 08:30 Hepatitis A IgM Ab Negative (NEGATIVE) 09/20/18 06:00 Hep Bs Antigen Negative (NEGATIVE) 09/20/18 06:00 Hep B Core IgM Ab Negative (NEGATIVE) 09/20/18 06:00 Hepatitis C Antibody Negative (NEGATIVE) 09/20/18 06:00 Influenza Typ A,B (EIA) Negative for flu a/b (NEGATIVE) 09/19/18 19:52 Blood Type O POSITIVE 09/20/18 15:00 Blood Type Confirm O POSITIVE 09/20/18 15:37 Antibody Screen Negative 09/20/18 15:00 Crossmatch See Detail 09/20/18 15:00 BBK History Checked No verified bt 09/20/18 15:00 Attending/Attestation - Attestation I have personally seen and examined this patient.: Yes I have fully participated in the care of the patient.: Yes I have reviewed all pertinent clinical information, including history, physical exam and plan: Yes
--- NOTE | 2018-09-22 20:43 | CP.PCM.PN ---
Subjective - Date & Time of Evaluation Date of Evaluation: 09/22/18 Time of Evaluation: 09:00 - Subjective Subjective: Less flank pain. Objective - Vital Signs/Intake and Output Vital Signs (last 24 hours): Temp Pulse Resp BP Pulse Ox 98.2 F 71 20 106/68 97 09/22/18 06:00 09/22/18 06:00 09/22/18 06:00 09/22/18 06:00 09/22/18 06:00 - Labs Labs: 09/22/18 06:00 09/22/18 06:00 PT 21.8 SECONDS (9.4-12.5) H 09/22/18 09:15 INR 1.87 09/22/18 09:15 APTT 44.6 Seconds (25.1-36.5) H 09/19/18 19:26 - Head Exam Head Exam: ATRAUMATIC - Eye Exam Eye Exam: Normal appearance - ENT Exam ENT Exam: Mucous Membranes Dry - Respiratory Exam Respiratory Exam: NORMAL BREATHING PATTERN - Cardiovascular Exam Cardiovascular Exam: +S1, +S2 - GI/Abdominal Exam GI & Abdominal Exam: Normal Bowel Sounds Assessment and Plan (1) Pancytopenia Assessment & Plan: secondary to liver disease, splenic sequestration thrombopoietin dysregulation f/u retic count, b12, folate, ferritin plt transfusion for goal plt > 50,000 if requires paracentesis Status: Acute (2) Splenomegaly Assessment & Plan: secondary to portal HTN from liver cirrhosis Status: Acute
== END 2018-09-22 16:12 | disposition home or self-care (01) | DRG 433 ==
LOC: ED 18:30 → ERH 23:08 → 3RSO 09-20 00:09 → OBSVTOIN 09-21 08:43
PROVIDERS: ADMIT Hospitalist; ATTEND Hospitalist
PROC: 6A550Z2 Pheresis of Platelets, Single (ICD-10-PCS; principal; 2018-09-20)
DX: K70.30 Alcoholic cirrhosis of liver without ascites (principal); K76.6 Portal hypertension; D61.818 Other pancytopenia; N39.0 Urinary tract infection, site not specified; K72.90 Hepatic failure, unspecified without coma; R31.9 Hematuria, unspecified; I86.8 Varicose veins of other specified sites; K26.9 Duodenal ulcer, unspecified as acute or chronic, without hemorrhage or perforation; K31.89 Other diseases of stomach and duodenum; K80.20 Calculus of gallbladder without cholecystitis without obstruction; N20.0 Calculus of kidney; N28.1 Cyst of kidney, acquired; Z51.5 Encounter for palliative care; Z87.442 Personal history of urinary calculi; Z90.49 Acquired absence of other specified parts of digestive tract; R16.1 Splenomegaly, not elsewhere classified; D64.9 Anemia, unspecified; D69.6 Thrombocytopenia, unspecified

== ENCOUNTER 2019-03-27 02:09 | Emergency (ER) | payer OTHER ==
[2019-03-27 02:10] VITALS: BMI 29.5
== END 2019-03-27 02:45 | disposition left against medical advice (07) ==
LOC: ED 02:09
DX: Z02.89 Encounter for other administrative examinations (principal); R52 Pain, unspecified

== ENCOUNTER 2019-04-12 09:04 | Emergency (ER) | payer OTHER ==
[2019-04-12 09:22] VITALS: BMI 31.3
[2019-04-12 09:23] VITALS: RESP 18; TEMP 98
[2019-04-12] MEDS ORDERED: Morphine 4 mg/ml ISec IVP STA (09:36)
[2019-04-12] MEDS ORDERED: Sodium Chloride 0.9% 1,000 ML IV STA (09:36)
--- NOTE | 2019-04-12 09:49 | ED PDOC ---
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 Patient also reports of nausea and pain in rectum. Pt is requesting morphine for pain. Patient denies fevers, chills, headache, dizziness, vision changes, chest pain, shortness of breath, cough, vomiting, diarrhea, dysuria, hematuria, back pain, neck pain, rash, diaphoresis, or any other complaints. 04/12/19 13:45 Time/Duration: < week (5 days) Symptom Course: Unchanged Activities at Onset: Light Context: Home Past Medical History - Provider Review Nursing Documentation Reviewed: Yes - Infectious Disease Hx of Infectious Diseases: None - Cardiac Hx Cardiac Disorders: No - Pulmonary Hx Respiratory Disorders: No - Neurological Hx Neurological Disorder: No - HEENT Hx HEENT Disorder: No - Renal Hx Renal Disorder: No - Endocrine/Metabolic Hx Endocrine Disorders: No - Hematological/Oncological Hx Blood Disorders: Yes Hx Cirrhosis: Yes - Integumentary Hx Dermatological Disorder: No - Musculoskeletal/Rheumatological Hx Musculoskeletal Disorders: No - Gastrointestinal Hx Gastrointestinal Disorders: Yes (Cirrhosis) Hx Liver Failure: Yes (cirrhosis) Other/Comment: LIVER CIRRHOSIS - Genitourinary/Gynecological Hx Genitourinary Disorders: No - Psychiatric Hx Psychophysiologic Disorder: No Hx Substance Use: No Other/Comment: pt quit drinking vodka daily 5 yrs ago due to dx of cirrhosis - Surgical History Hx Appendectomy: Yes - Anesthesia Hx Anesthesia: Yes - Suicidal Assessment Feels Threatened In Home Enviroment: No Family/Social History - Physician Review Nursing Documentation Reviewed: Yes Family/Social History: Unknown Family HX Smoking Status: Never Smoked Hx Alcohol Use: Yes Hx Substance Use: No Allergies/Home Meds Allergies/Adverse Reactions: Allergies No Known Allergies Allergy (Verified 04/12/19 09:23) Home Medications: Home Meds Medication Instructions Recorded Confirmed Lactulose 07/23/17 Review of Systems - Review of Systems Constitutional: absent: Fevers, Other (chills) Eyes: absent: Vision Changes Respiratory: absent: SOB, Cough Cardiovascular: absent: Chest Pain Gastrointestinal: Stool Changes, Constipation, Nausea, Other (no bowel movements since 5 days, pain in rectum). absent: Diarrhea Genitourinary Male: absent: Dysuria, Hematuria Musculoskeletal: absent: Back Pain, Neck Pain Skin: absent: Rash Neurological: absent: Headache, Dizziness Endocrine: absent: Diaphoresis Physical Exam Vital Signs Reviewed: Yes Vital Signs Temp Pulse Resp BP Pulse Ox 04/12/19 09:22 98.0 F 98 H 18 161/111 H 96 Temperature: Afebrile Blood Pressure: Normal Pulse: Regular Respiratory Rate: Normal Appearance: Positive for: Well-Appearing, Non-Toxic, Comfortable Pain Distress: None Mental Status: Positive for: Alert and Oriented X 3 - Systems Exam Head: Present: Atraumatic, Normocephalic Pupils: Present: PERRL Extroacular Muscles: Present: EOMI Conjunctiva: Present: Normal Mouth: Present: Moist Mucous Membranes Neck: Present: Normal Range of Motion Respiratory/Chest: Present: Clear to Auscultation, Good Air Exchange. No: Respiratory Distress, Accessory Muscle Use, Wheezes, Rales, Rhonchi Cardiovascular: Present: Regular Rate and Rhythm, Normal S1, S2. No: Murmurs, Rub, Gallop Abdomen: Present: Normal Bowel Sounds. No: Tenderness, Distention, Peritoneal Signs, Rebound, Guarding Genitourinary Male: Present: Other (refusing rectal exam) Back: Present: Normal Inspection Upper Extremity: Present: Normal Inspection, Normal ROM, NORMAL PULSES, Neurovascularly Intact. No: Cyanosis, Edema Lower Extremity: Present: Normal Inspection, NORMAL PULSES, Normal ROM, Neurovascularly Intact. No: Edema Neurological: Present: GCS=15, CN II-XII Intact, Speech Normal Skin: Present: Warm, Dry, Normal Color. No: Rashes Psychiatric: Present: Alert, Oriented x 3, Normal Insight, Normal Concentration Medical Decision Making ED Course and Treatment: 04/12/19 09:21 Impression: Patient is a 44 year old male, with a past medical history of SBO and cirrhosis due to alcohol, who presents to the emergency department complaining of lack of bowel movements since 5 days. Plan: -- CT Abdomen/Pelvis w/ IV Contrast -- Labs -- IV Fluids -- Morphine -- Zofran -- Reassess and disposition Prior Visits: Notes and results from previous visits were reviewed. 04/12/19 11:31 Abdomen/Pelvis w/ IV shows: IMPRESSION: Cirrhosis with splenic varices and splenomegaly. Moderate distention of the gallbladder. Multiple small gallstones. Nonobstructing renal stones. Moderate constipation especially in the rectosigmoid Progress Notes: Patient is refusing digital rectal exam. Used pitch flaker to explain that I would like to perform digital disimpaction but also refuses. Given enema but refusing to use. Given miralax and lactulose po. He is tolerating po. Patient constipated but not obstructed. Labs are at baseline. Instructed on the importance of following up with [facility] for liver transplant secondary to etoh cirrhosis and to stop drinking. - RAD Interpretation Radiology Orders: 04/12/19 09:35 ABD & PELVIS IV CONTRAST ONLY [CT] Stat Lath Hand: Radiologist - Medication Orders Current Medication Orders: Sodium Chloride (Sodium Chloride 0.9%) 1,000 mls @ 999 mls/hr IV .Q1H1M STA Stop: 04/12/19 10:36 Discontinued Medications Morphine Sulfate (Morphine) 4 mg IVP STAT STA Stop: 04/12/19 09:37 Ondansetron HCl (Zofran Inj) 4 mg IVP STAT STA Stop: 04/12/19 09:37 - Scribe Statement The provider has reviewed the documentation as recorded by the Scribe Lee Liu All medical record entries made by the Scribe were at my direction and person ally dictated by me. I have reviewed the chart and agree that the record accurately reflects my personal performance of the history, physical exam, medical decision making, and the department course for this patient. I have also personally directed, reviewed, and agree with the discharge instructions and disposition. Disposition/Present on Arrival - Present on Arrival Any Indicators Present on Arrival: No History of DVT/PE: No History of Uncontrolled Diabetes: No Urinary Catheter: No History of Decub. Ulcer: No History Surgical Site Infection Following: None - Disposition Have Diagnosis and Disposition been Completed?: Yes Diagnosis: Cirrhosis, Thrombocytopenia, Constipation, Splenomegaly Disposition: HOME/ ROUTINE Disposition Time: 13:46 Patient Plan: Discharge Patient Problems: Current Active Problems Problem Status Onset Cirrhosis of liver Acute Constipation Acute Splenomegaly Acute Thrombocytopenia Acute Condition: GOOD Discharge Instructions (ExitCare): Cirrhosis, Constipation, Adult (DC) Print Language: THAI Additional Instructions: You need to follow-up with liver transplant service at [facility] as previously recommended on discharge. Increase fiber in diet. Follow-up with PMD within 2 days. Follow-up with GI. Referrals: Usman Lock MD [Primary Care Provider] - Follow up with primary Memo Velasquez DO [Staff Provider] - Follow up with primary Forms: [email or web address] (Tajik)
[2019-04-12 10:20] LABS: BASO # 0.01 K/mm3 (0.0-2.0); BASO % 0.5 % (0.0-3.0); EOS # 0.1 (0.0-0.7); HEMOGLOBIN 13.2 g/dL (14.0-18.0); LYMPH # 0.9 (1.2-3.4); MEAN CELL VOLUME 94.8 fl (80.0-105.0); MEAN CORPUSCULAR HEMOGLOBIN 32.5 pg (25.0-35.0); MEAN CORPUSCULAR HGB CONC 34.3 g/dl (31.0-37.0); MEAN PLATELET VOLUME 11.2 fl (7.0-11.0); MONO # 0.2 (0.1-0.6); MONO % 7.4 % (1.0-6.0); RBC 4.06 10^6/uL (3.5-6.1); RED CELL DISTRIBUTION WIDTH 14.3 % (11.5-14.5)
[2019-04-12 10:30] LABS: ALB/GLOB RATIO 0.9 (1.1-1.8); ALBUMIN 3.2 g/dL (3.0-4.8); ALT/SGPT 43 U/L (7-56); AST/SGOT 78 U/L (17-59); BLOOD UREA NITROGEN 4 mg/dL (7-21); GFR NON-AFRICAN AMERICAN > 60; LIPASE 94 U/L (23-300)
[2019-04-12 10:32] LABS: INR 1.71; PARTIAL THROMBOPLASTIN TIME 42.7 Seconds (26.9-38.3); PROTHROMBIN TIME 19.3 SECONDS (9.4-12.5)
[2019-04-12 10:34] LABS: PLATELET COUNT 44 10^3/uL (120.0-450.0)
--- NOTE | 2019-04-12 11:35 | CT ---
Date of service: 04/12/2019 PROCEDURE: CT Abdomen and Pelvis with contrast HISTORY: hx of sbo, with constipation COMPARISON: 09/20/2018 TECHNIQUE: Contrast dose: 150 cc of Omni 350 Radiation dose: Total exam DLP = 1354.46 mGy-cm. This CT exam was performed using one or more of the following dose reduction techniques: Automated exposure control, adjustment of the mA and/or kV according to patient size, and/or use of iterative reconstruction technique. FINDINGS: LOWER THORAX: Unremarkable. LIVER: The liver has an irregular contour consistent with a history of cirrhosis. Enlarged splenic varices are seen GALLBLADDER AND BILE DUCTS: The gallbladder is moderately distended and contains multiple stones. There are no stones seen in the common duct or neck of the gallbladder PANCREAS: Unremarkable. No gross lesion or ductal dilatation. SPLEEN: Unremarkable. Enlarged splenic varices. ADRENALS: Unremarkable. No mass. KIDNEYS AND URETERS: Unremarkable. No hydronephrosis. No solid mass. Nonobstructing bilateral stones VASCULATURE: Unremarkable. No aortic aneurysm. No aortic atherosclerotic calcification or mural plaque present. BOWEL: Unremarkable. No obstruction. No gross mural thickening. There is a moderate amount of stool in the rectosigmoid APPENDIX: Appendix removed PERITONEUM: Unremarkable. No free fluid. No free air. LYMPH NODES: Unremarkable. No enlarged lymph nodes. BLADDER: Unremarkable. REPRODUCTIVE: Unremarkable. BONES: No acute fracture. OTHER FINDINGS: None. IMPRESSION: Cirrhosis with splenic varices and splenomegaly. Moderate distention of the gallbladder. Multiple small gallstones. Nonobstructing renal stones. Moderate constipation especially in the rectosigmoid
[2019-04-12] MEDS ORDERED: POLYETHYLENE GLYCOL 3350 17 GM/Dose PACKET PO STA (11:39)
[2019-04-12] MEDS ORDERED: Lactulose 10 gm/15 ml (Rectal Use) PR STA (11:39)
[2019-04-12] MEDS ORDERED: Potassium Chloride 20 mEq ER Tab PO STA (13:45)
[2019-04-12 14:26] VITALS: BP 132/90; PULSE 80; O2SAT 99
== END 2019-04-12 14:29 | disposition home or self-care (01) ==
LOC: ED 09:04
DX: K74.60 Unspecified cirrhosis of liver (principal); D69.6 Thrombocytopenia, unspecified; R16.1 Splenomegaly, not elsewhere classified; K59.00 Constipation, unspecified
CPT/HCPCS: 74177; 80053; 83690; 85025; 85610; 85730; 96374; 96375; 99284; J2270; J2405; J7030; Q9967